=== PATIENT | female | born 1965 | race African-American/Black ===

== ENCOUNTER 2018-06-11 08:53 | Observation (INO) | payer OTHER ==
[2018-06-11] MEDS ORDERED: NA CHLORIDE 0.9% 1,000 ML ONE (09:14)
[2018-06-11 09:40] LABS: Absolute Lymphocytes (CBC) 2.2 K/uL (0.7-4.9); Absolute Monocytes 0.8 K/uL (0.1-1.3); Absolute Neutrophil 2.8 K/uL (1.8-8.0); Basophils % 0.7 % (0-1.3); Eosinophils % 5.2 % (0-4.4); Hematocrit 38.8 % (36.0-45.0); Lymphocytes % 35.8 % (15.3-44.8); MCH 33.1 pg (27.0-35.0); Monocytes % 12.8 % (3.3-12.3); RBC Red Blood Cell Count 3.96 M/uL (3.86-4.86)
[2018-06-11 09:58] LABS: Protime INR 1.07
[2018-06-11 10:02] LABS: ALT/SGPT 17 U/L (12-78); AST/SGOT 19 U/L (15-37); Albumin 3.3 g/dL (3.4-5.0); Alkaline Phosphatase 57 U/L (45-117); BUN Blood Urea Nitrogen 12 mg/dL (7-18); Bicarbonate 25 mmol/L (21-32); Bilirubin Direct 0.3 mg/dL (0-0.2); Bilirubin Total 3.6 mg/dL (0.2-1.0); Glucose Level 89 mg/dL (74-106); Lipase 78 U/L (73-393); Magnesium 2.2 mg/dL (1.8-2.4); NT PRO-BNP 67 pg/mL (<125); Potassium 3.8 mmol/L (3.5-5.1); Sodium Level 139 mmol/L (136-145); Troponin (Emerg Dept Use Only) < 0.02 ng/mL (0.0-0.045)
[2018-06-11] MEDS ORDERED: ASPIRIN 81 MG CHEWABLE TABLET ONE (10:20)
--- NOTE | 2018-06-11 10:31 | ER ---
Nurse's Notes [facility] Name: Nisreen Dwyer Age: 52 yrs Sex: Female : 1965 Arrival Date: 06/11/2018 Time: 08:56 Bed 8 Private MD: None, None Diagnosis: Chest pain, unspecified;Human immunodeficiency virus [HIV] disease;Urinary tract infection, site not specified Presentation: 06/11 09:02 Presenting complaint: Patient states: has had cough, chest tightness X 2 days, hx of iw asthma, denies chest pain, also coughing up yellow sputum, denies fever. Transition of care: patient was not received from another setting of care. Onset of symptoms was June 09, 2018. Risk Assessment: Do you want to hurt yourself or someone else? Patient reports no desire to harm self or others. Initial Sepsis Screen: Does the patient meet any 2 criteria? No. Patient's initial sepsis screen is negative. Does the patient have a suspected source of infection? No. Patient's initial sepsis screen is negative. Care prior to arrival: None. 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 - Social history:: Smoking status: Patient uses tobacco products, smokes one-half pack cigarettes per day. - Ebola Screening: : Patient negative for fever greater than or equal to 101.5 degrees Fahrenheit, and additional compatible Ebola Virus Disease symptoms Patient denies exposure to infectious person Patient denies travel to an Ebola-affected area in the 21 days before illness onset No symptoms or risks identified at this time. Screenin:37 Abuse screen: Denies threats or abuse. Denies injuries from another. Nutritional sg screening: No deficits noted. Tuberculosis screening: No symptoms or risk factors identified. Never had TB. Fall Risk None identified. Assessment: 09:37 General: Appears in no apparent distress. comfortable, slender, well groomed, well sg developed, well nourished, Behavior is calm, cooperative, appropriate for age. Pain: Denies pain. 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 Full function Speech is normal, Facial symmetry appears normal. Cardiovascular: Capillary refill is brisk in bilateral fingers Patient's skin is warm and dry. Chest pain quality is "tightness" is located in anterior chest wall. Respiratory: Reports shortness of breath on exertion Airway is patent Respiratory effort is even, unlabored, Respiratory pattern is regular, symmetrical, Breath sounds are clear Denies cough. GI: No signs and/or symptoms were reported involving the gastrointestinal system. : No signs and/or symptoms were reported regarding the genitourinary system. EENT: No signs and/or symptoms were reported regarding the EENT system. Derm: Skin is intact, is healthy with good turgor, Skin is dry, Skin is normal, Skin temperature is warm. Musculoskeletal: Circulation, motion, and sensation intact. Range of motion: intact in all extremities, Swelling absent. 09:55 Reassessment: pt supine in bed, HOB elevated 30 degrees, eyes closed, reps even and sg unlabored, pt awakens easily to verbal stimuli and then goes back to sleep, awaiting ultrasound, awaiting lab results at this time, pt denies pain. Pain medication held, notified. Vital Signs: 09:07 BP 127 / 97; Pulse 81; Resp 16; Temp 97.8; Pulse Ox 98% on R/A; Weight 56.7 kg; Height iw 5 ft. 5 in. (165.10 cm); Pain 0/10; 10:19 BP 110 / 84; Pulse 70; Resp 14; Pulse Ox 100% on R/A; Pain 0/10; sg 11:25 BP 127 / 88; Pulse 72; Resp 16; Pulse Ox 99% on R/A; Pain 0/10; sg 09:07 Body Mass Index 20.80 (56.70 kg, 165.10 cm) ED Course: 08:56 Patient arrived in ED. sb2 08:56 None, None is Private Physician. sb2 08:57 Alex Lopez MD is Attending Physician. nova 09:04 Triage completed. iw 09:07 Twin Ball RN is Primary Nurse. sg 09:07 Arm band placed on. iw 09:21 X-ray completed. Portable x-ray completed in exam room. Patient tolerated procedure la2 well. 09:22 XRAY Chest (1 view) In Process Unspecified. EDMS 09:30 Patient has correct armband on for positive identification. Placed in gown. Bed in low sg position. Call light in reach. Side rails up X2. department clerk on. Pulse ox on. NIBP on. Warm blanket given. x2 Head of bed elevated. 09:30 Initial lab(s) drawn, by me, sent to lab. Inserted saline lock: 20 gauge in right sg forearm, using aseptic technique. Blood collected. Patient maintains SpO2 saturation greater than 95% on room air. 10:30 Andrew Partida DO is Hospitalizing Provider. nova 10:54 Urine collected: clean catch specimen, clear. sg 12:28 No provider procedures requiring assistance completed. Patient admitted, IV remains in sg place. intact, No redness/swelling at site. Administered Medications: 09:36 Drug: NS 0.9% 1000 ml Route: IV; Rate: 125 ml/hr; Site: right forearm; sg 09:45 Drug: Aspirin Chewable Tablet 162 mg Route: PO; sg 11:25 Follow up: Response: No adverse reaction sg 11:10 Drug: Lovenox 1 mg/kg Route: Sub-Q; Site: right lower abdomen; sg 12:13 Follow up: Response: No adverse reaction sg 11:11 Drug: morphine 4 mg Route: IVP; Site: right forearm; sg 12:14 Follow up: Response: No adverse reaction sg 11:11 Drug: Zofran 4 mg Route: IVP; Site: right forearm; sg 12:13 Follow up: Response: No adverse reaction; Nausea is decreased sg 11:20 Drug: Rocephin 1 grams Route: IV; Rate: calculated rate; Site: right forearm; sg 12:00 Follow up: Response: No adverse reaction; IV Status: Completed infusion sg 11:22 Not Given (Other Intervention Used): Rocephin - (cefTRIAXone) 1 grams IVPB once over 30 sg mins; (mix in 50 mL NS) Outcome: 10:31 Decision to Hospitalize by Provider. nova 12:26 Admitted to [facility] accompanied by tech, family with patient, via wheelchair, room 429, sg with chart, Report called to Addy SHAFER 12:26 Condition: stable 12:26 Instructed on the need for admit, safety practices, Demonstrated understanding of instructions. 12:43 Patient left the ED. sg Signatures: Dispatcher [employer] EDTwin Pretty RN RN sg Anderson, Corey, MD MD cha Williams, Irene, RN RN Lizeth Chapman la2 Kelsie Tesfaye2 Corrections: (The following items were deleted from the chart) 09: 09:02 Acuity: VIVIANE 4 iw iw : 09:37 Inserted saline lock: 20 gauge in right forearm, using aseptic technique. Blood sg collected. :37 Initial lab(s) drawn, by me, sent to lab. [facility] :37 Patient maintains SpO2 saturation greater than 95% on room air. sg sg
--- NOTE | 2018-06-11 10:31 | EDPHYS ---
Physician Documentation [facility] Name: Nisreen Dwyer Age: 52 yrs Sex: Female : 1965 Arrival Date: 06/11/2018 Time: 08:56 Bed 8 Private MD: None, None ED Physician Alex Lopez HPI: 06/11 10:29 This 52 yrs old Black Female presents to ER via Wheelchair with complaints of Chest nova Tightness. 10:29 The patient or guardian reports chest pain that is located primarily in the substernal nova area, anterior chest wall. Onset: 3 day(s) ago. The pain does not radiate. Associated signs and symptoms: The patient has no apparent associated signs or symptoms. The chest pain is described as squeezing. Duration: The patient or guardian reports a single episode, that is still ongoing. Modifying factors: The symptoms are alleviated by nothing. the symptoms are aggravated by nothing. Severity of pain: At its worst the pain was moderate in the emergency department the pain has improved mildly. The patient has not experienced similar symptoms in the past. 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 - Social history:: Smoking status: Patient uses tobacco products, smokes one-half pack cigarettes per day. - Ebola Screening: : Patient negative for fever greater than or equal to 101.5 degrees Fahrenheit, and additional compatible Ebola Virus Disease symptoms Patient denies exposure to infectious person Patient denies travel to an Ebola-affected area in the 21 days before illness onset No symptoms or risks identified at this time. ROS: 10:29 Constitutional: Negative for fever, chills, and weight loss, Eyes: Negative for injury, nova pain, redness, and discharge, ENT: Negative for injury, pain, and discharge, Neck: Negative for injury, pain, and swelling, Respiratory: Negative for shortness of breath, cough, wheezing, and pleuritic chest pain, Abdomen/GI: Negative for abdominal pain, nausea, vomiting, diarrhea, and constipation, Back: Negative for injury and pain, : Negative for injury, bleeding, discharge, and swelling, MS/Extremity: Negative for injury and deformity, Skin: Negative for injury, rash, and discoloration, Neuro: Negative for headache, weakness, numbness, tingling, and seizure, Psych: Negative for depression, anxiety, suicide ideation, homicidal ideation, and hallucinations, Allergy/Immunology: Negative for hives, rash, and allergies, Endocrine: Negative for neck swelling, polydipsia, polyuria, polyphagia, and marked weight changes, Hematologic/Lymphatic: Negative for swollen nodes, abnormal bleeding, and unusual bruising. 10:29 Cardiovascular: Positive for chest pain. Exam: 10:29 Constitutional: This is a well developed, well nourished patient who is awake, alert, nova and in no acute distress. Head/Face: Normocephalic, atraumatic. Eyes: Pupils equal round and reactive to light, extra-ocular motions intact. Lids and lashes normal. Conjunctiva and sclera are non-icteric and not injected. Cornea within normal limits. Periorbital areas with no swelling, redness, or edema. ENT: Nares patent. No nasal discharge, no septal abnormalities noted. Tympanic membranes are normal and external auditory canals are clear. Oropharynx with no redness, swelling, or masses, exudates, or evidence of obstruction, uvula midline. Mucous membranes moist. Neck: Trachea midline, no thyromegaly or masses palpated, and no cervical lymphadenopathy. Supple, full range of motion without nuchal rigidity, or vertebral point tenderness. No Meningismus. Chest/axilla: Normal chest wall appearance and motion. Nontender with no deformity. No lesions are appreciated. Cardiovascular: Regular rate and rhythm with a normal S1 and S2. No gallops, murmurs, or rubs. Normal PMI, no JVD. No pulse deficits. Respiratory: Lungs have equal breath sounds bilaterally, clear to auscultation and percussion. No rales, rhonchi or wheezes noted. No increased work of breathing, no retractions or nasal flaring. Abdomen/GI: Soft, non-tender, with normal bowel sounds. No distension or tympany. No guarding or rebound. No evidence of tenderness throughout. Back: No spinal tenderness. No costovertebral tenderness. Full range of motion. Skin: Warm, dry with normal turgor. Normal color with no rashes, no lesions, and no evidence of cellulitis. MS/ Extremity: Pulses equal, no cyanosis. Neurovascular intact. Full, normal range of motion. Neuro: Awake and alert, GCS 15, oriented to person, place, time, and situation. Cranial nerves II-XII grossly intact. Motor strength 5/5 in all extremities. Sensory grossly intact. Cerebellar exam normal. Normal gait. Psych: Awake, alert, with orientation to person, place and time. Behavior, mood, and affect are within normal limits. Vital Signs: 09:07 BP 127 / 97; Pulse 81; Resp 16; Temp 97.8; Pulse Ox 98% on R/A; Weight 56.7 kg; Height iw 5 ft. 5 in. (165.10 cm); Pain 0/10; 10:19 BP 110 / 84; Pulse 70; Resp 14; Pulse Ox 100% on R/A; Pain 0/10; sg 11:25 BP 127 / 88; Pulse 72; Resp 16; Pulse Ox 99% on R/A; Pain 0/10; sg 09:07 Body Mass Index 20.80 (56.70 kg, 165.10 cm) iw MDM: 08:57 Patient medically screened. [facility] 10:30 Data reviewed: vital signs, nurses notes, lab test result(s), EKG, radiologic studies, nova plain films. 06/11 08:59 Order name: Basic Metabolic Panel; Complete Time: 10:23 [facility] 06/11 08:59 Order name: CBC with Diff; Complete Time: 10: [facility] 06/11 08:59 Order name: LFT's; Complete Time: 10:23 [facility] 06/11 08:59 Order name: Magnesium; Complete Time: 10:23 [facility] 06/11 08:59 Order name: NT PRO-BNP; Complete Time: 10:23 [facility] 06/11 08:59 Order name: PT-INR; Complete Time: 10:23 [facility] 06/11 08:59 Order name: Troponin (emerg Dept Use Only); Complete Time: 10:23 [facility] 06/11 08:59 Order name: Lipase; Complete Time: 10: [facility] 06/11 09:14 Order name: Blood Culture Adult (2) [facility] 06/11 09:28 Order name: UDS [facility] 06/11 09:37 Order name: D-Dimer; Complete Time: 10:23 [facility] 06/11 10:54 Order name: Urine Dipstick--Ancillary (enter results) sp 06/11 10:54 Order name: Urine Culture [facility] 06/11 08:59 Order name: XRAY Chest (1 view) [facility] 06/11 08:59 Order name: EKG; Complete Time: 09:00 [facility] 06/11 08:59 Order name: Cardiac monitoring; Complete Time: 09:37 [facility] 06/11 08:59 Order name: EKG - Nurse/Tech; Complete Time: 09:36 [facility] 06/11 08:59 Order name: IV Saline Lock; Complete Time: 09:36 [facility] 06/11 09:08 Order name: US Abdomen Limited [facility] 06/11 10:37 Order name: CONS Physician Consult [facility] 06/11 11:12 Order name: Urine Dipstick-Ancillary [facility] 06/11 11:20 Order name: US [facility] 06/11 08:59 Order name: Labs collected and sent; Complete Time: 09:36 [facility] 06/11 08:59 Order name: O2 Per Protocol; Complete Time: 09:36 [facility] 06/11 08:59 Order name: O2 Sat Monitoring; Complete Time: 09:36 [facility] 06/11 10:54 Order name: Urine Dipstick-Ancillary (obtain specimen); Complete Time: 10:55 [facility] Administered Medications: 09:36 Drug: NS 0.9% 1000 ml Route: IV; Rate: 125 ml/hr; Site: right forearm; sg 09:45 Drug: Aspirin Chewable Tablet 162 mg Route: PO; sg 11:25 Follow up: Response: No adverse reaction sg 11:10 Drug: Lovenox 1 mg/kg Route: Sub-Q; Site: right lower abdomen; sg 12:13 Follow up: Response: No adverse reaction sg 11:11 Drug: morphine 4 mg Route: IVP; Site: right forearm; sg 12:14 Follow up: Response: No adverse reaction sg 11:11 Drug: Zofran 4 mg Route: IVP; Site: right forearm; sg 12:13 Follow up: Response: No adverse reaction; Nausea is decreased sg 11:20 Drug: Rocephin 1 grams Route: IV; Rate: calculated rate; Site: right forearm; sg 12:00 Follow up: Response: No adverse reaction; IV Status: Completed infusion sg 11:22 Not Given (Other Intervention Used): Rocephin - (cefTRIAXone) 1 grams IVPB once over 30 sg mins; (mix in 50 mL NS) Disposition: 06/11/18 10:31 Hospitalization ordered by Andrew Partida for Observation. Preliminary diagnosis are Chest pain, unspecified, Human immunodeficiency virus [HIV] disease, Urinary tract infection, site not specified. - Bed requested for Telemetry/MedSurg (observation). - Status is Observation. sg - Condition is Fair. - Problem is new. - Symptoms have improved. UTI on Admission? Yes Signatures: Dispatcher [employer] EDMS Twin Ball RN RN sg Anderson, Corey, MD MD cha Pinkerton, Shawna sp Williams, Irene, RN RN iw Corrections: (The following items were deleted from the chart) 09:36 09:14 D-DIMER+[id number].LAB.BRZ ordered. [facility] 10:59 10:31 Hospitalization Ordered by Andrew Partida DO for Observation. Preliminary [facility] diagnosis is Chest pain, unspecified; Human immunodeficiency virus [HIV] disease. Bed requested for Telemetry/MedSurg (observation). Status is Observation. Condition is Fair. Problem is new. Symptoms have improved. UTI on Admission? No. [facility] 12:07 10:59 06/11/2018 10:31 Hospitalization Ordered by Andrew Partida DO for Observation. sp Preliminary diagnosis is Chest pain, unspecified; Human immunodeficiency virus [HIV] disease; Urinary tract infection, site not specified. Bed requested for Telemetry/MedSurg (observation). Status is Observation. Condition is Fair. Problem is new. Symptoms have improved. UTI on Admission? Yes. nova 12:43 12:07 06/11/2018 10:31 Hospitalization Ordered by Andrew Partida DO for Observation. sg Preliminary diagnosis is Chest pain, unspecified; Human immunodeficiency virus [HIV] disease; Urinary tract infection, site not specified. Bed requested for Telemetry/MedSurg (observation). Status is Observation. Condition is Fair. Problem is new. Symptoms have improved. UTI on Admission? Yes. sp
[2018-06-11 11:12] LABS: Urine Blood TRACE (NEG); Urine Glucose NEGATIVE (NEG); Urine Protein 1+ (NEG)
[2018-06-11] MEDS ORDERED: CEFTRIAXONE/SWI 1gm 1 GM/10 ML SYR ONE (11:14)
[2018-06-11] MEDS ORDERED: ONDANSETRON 4 MG/2 ML VIAL ONE (11:14)
[2018-06-11] MEDS ORDERED: MORPHINE 4 MG/ML SYR ONE (11:14)
[2018-06-11] MEDS ORDERED: ENOXAPARIN 60 MG/0.6 ML SQ ONE (11:15)
--- NOTE | 2018-06-11 11:19 | RAD REPORT ---
EXAM DESCRIPTION: US - Abdomen Exam Limited - 06/11/2018 10:53 am CLINICAL HISTORY: ABD PAIN COMPARISON: No comparisons FINDINGS: The gallbladder demonstrates no gallstones. No pericholecystic fluid or gallbladder wall t hickening. The common bile duct is normal measuring 4 mm. The liver demonstrates no findings of intrahepatic biliary dilatation. IMPRESSION: Unremarkable examination.
[2018-06-11 11:26] LABS: Barbiturates NEGATIVE (NEGATIVE); Benzodiazepines NEGATIVE (NEGATIVE); Cocaine POSITIVE (NEGATIVE); METHAMPHETAM NEGATIVE (NEGATIVE); Methadone NEGATIVE (NEGATIVE); Opiates NEGATIVE (NEGATIVE); Phencyclidine NEGATIVE (NEGATIVE); THC Cannibis POSITIVE (NEGATIVE)
--- NOTE | 2018-06-11 11:31 | RAD REPORT ---
EXAM DESCRIPTION: RAD - Chest Single View - 06/11/2018 9:21 am CLINICAL HISTORY: CHEST PAIN Chest pain. COMPARISON: Chest Pa And Lat (2 Views) dated 06/28/2017; CHEST SINGLE VIEW dated 12/16/2011 FINDINGS: Portable technique limits examination quality. The lungs are grossly clear. The heart is normal in size. No displaced fractures. IMPRESSION: No acute intrathoracic process suspected.
[2018-06-11] MEDS ORDERED: IPRATROPIUM BROM 0.5MG/2.5ML NEB PRN (11:39)
[2018-06-11] MEDS ORDERED: ONDANSETRON 4 MG/2 ML VIAL IV PRN (11:39)
[2018-06-11] MEDS ORDERED: TRAMADOL HCL 50 MG TAB PO PRN (11:39)
[2018-06-11] MEDS ORDERED: ALBUTEROL 2.5 MG/3 ML NEB SOL NEB PRN (11:39)
[2018-06-11] MEDS ORDERED: HYDRALAZINE HCL 20 MG/ML VIAL IV PRN (11:39)
[2018-06-11] MEDS ORDERED: ACETAMINOPHEN 500 MG TAB PO PRN (11:39)
--- NOTE | 2018-06-11 11:55 | P.HP ---
Certification for Inpatient Patient admitted to: Observation With expected LOS: <2 Midnights Patient will require the following post-hospital care: None Practitioner: I am a practitioner with admitting privileges, knowledge of patient current condition, hospital course, and medical plan of care. Services: Services provided to patient in accordance with Admission requirements found in Title 42 Section 412.3 of the Code of Federal Regulations Patient History Date of Service: 06/11/18 [facility] Reason for admission: Shortness of breath, chest pain History of Present Illness: 52-year-old -[place]ogol[place] female presented to emergency room with shortness of breath and chest pain. Patient has history of HIV, hypertension, asthma, cocaine and tobacco abuse. Patient presented with shortness of breath and chest pain over the past 3 days. Chest pain mainly to the left side. He does not radiate. Patient reports no palpitations. Patient denies nausea, vomiting, headaches or dizziness. In the ER patient evaluated. Blood pressure stable. O2 saturations around 88% while lying down. Patient with increased fatigue. Patient positive for cocaine and THC. White count 6.1, hemoglobin 13.6. Sodium 135, potassium 3.8. BUN of 12, creatinine 1.3 with a GFR 52. Glucose 89. Chest x-ray unremarkable. Abdominal ultrasound unremarkable. Patient admitted for observation. When I saw the patient ER, she did not appear in any respiratory distress. Poor eye contact noted. Patient with increased fatigue. Patient gets her HIV medication through [facility]. Patient reports taking medication for blood pressure. Uses albuterol as needed. Patient admits tobacco use. Patient denied using cocaine. Allergies No Known Allergies Allergy (Unverified 12/16/11 12:16) Home medications list reviewed: Yes - Past Medical/Surgical History Diabetic: No -: HIV -: Hypertension -: Asthma -: Tobacco abuse -: Cocaine abuse -: THC abuse Past Surgical History: Patient denies surgical history Psychosocial/ Personal History: Patient is single. She has 3 children. She does not work. - Family History Family History: Reviewed- Non-Contributory - Social History Smoking Status: Heavy Tobacco smoker (>10 cigarettes/day) Counseled patient to stop smoking for: less than 10 minutes Smoking therapy provided: Yes Patient receptive to therapy: Yes Alcohol use: No CD- Drugs: Yes Caffeine use: Yes Place of Residence: Home Review of Systems General: As per HPI Eyes: Unremarkable ENT: Unremarkable Respiratory: Cough, Shortness of Breath, Wheezing, As per HPI Cardiovascular: Chest Pain, As per HPI Gastrointestinal: Unremarkable Genitourinary: Unremarkable Musculoskeletal: Unremarkable Integumentary: Unremarkable Neurological: Unremarkable Lymphatics: Unremarkable Physical Examination - Physical Exam General: Alert, In no apparent distress, Oriented x3, Cooperative, Other (With increased fatigue.) HEENT: Atraumatic, Normocephalic, PERRLA, Other (Dry mucous membranes) Neck: Supple, No Thyromegaly Respiratory: Expiratory wheezes (Mild wheezing bilateral) Cardiovascular: Normal pulses, Regular rate/rhythm Gastrointestinal: Normal bowel sounds, Soft and benign, Non-distended, No tenderness, No masses, No rebound, No guarding Musculoskeletal: No contractures, No erythema, No tenderness, No warmth Integumentary: No tenderness/swelling, No erythema, No warmth, No cyanosis Neurological: Normal speech, Normal strength at 5/5 x4 extr, Normal tone, Normal affect - Studies Laboratory Data (last 24 hrs) 06/11/18 09:30: PT 12.6 H, INR 1.07 06/11/18 09:30: WBC 6.1, Hgb 13.1, Hct 38.8, Plt Count 236 06/11/18 09:30: Sodium 139, Potassium 3.8, BUN 12, Creatinine 1.30, Glucose 89, Magnesium 2.2, Total Bilirubin 3.6 H, AST 19, ALT 17, Alkaline Phosphatase 57, Lipase 78 Assessment and Plan - Plan Impression: Shortness of breath and chest pain likely asthma exacerbation HIV positive Cocaine abuse with positive drug screen THC use with positive drug screen Hypertension GERD Tobacco abuse Dehydration Plan: Shortness of breath and chest pain likely asthma exacerbation: Patient will be admitted for observation and treatment. Will start oral prednisone and asthma medication. Will monitor cardiac enzymes and telemetry. Doubt chest pain is cardiac related. Will check echocardiogram and monitor cardiac enzymes including telemetry. Will reassess tomorrow. Recheck chest x-ray. Will obtain pro calcitonin level. Anticipate discharge tomorrow if much improved. Will need to have older adult social work specialist provide education and contact information to local PCPs in the area to establish care. Compliance with follow up and medications will be addressed in detail. HIV positive: Will need to obtain HIV medication from home so that this can be restarted. Patient seen in [place] for her HIV. Cocaine abuse with positive drug screen: Patient did not admit to cocaine use. She was positive for cocaine. Will address cocaine cessation education and lifestyle modification. THC use with positive drug screen: Patient did not admit to marijuana use. She was positive for THC. Will address THC cessation education. Hypertension: Will need to obtain home medication. Will provide medication for blood pressure as needed. GERD: Will provide PPI. Tobacco abuse: Will address tobacco cessation education Dehydration: Will start IV fluids. Will monitor electrolytes and replace appropriately. Discharge Plan: Home Plan to discharge in: 24 Hours - Advance Directives Does patient have a Living Will: No Does patient have a Durable POA for Healthcare: No - Code Status/Comfort Care Code Status Assessed: Yes (Patient full code.) Time Spent Managing Pts Care (In Minutes): 55
[2018-06-11 12:57] VITALS: BMI 20.7
[2018-06-11] MEDS: NA CHLORIDE 0.9% 1,000 ML IV SCH ×2 (13:17→23:16)
[2018-06-11 15:43] LABS: Urine Appearance CLEAR; Urine Bilirubin NEGATIVE (NEG); Urine Blood 1+ (NEG); Urine Color YELLOW; Urine Glucose NEGATIVE (NEG); Urine Protein NEGATIVE (NEG); Urine Specific Gravity <=1.005 (1.005-1.030)
[2018-06-11 15:57] LABS: Urine Microscopic Reflex ORDER UMIC
[2018-06-11 16:07] LABS: Urine Bacteria <20 /HPF (<20)
[2018-06-11 16:11] LABS: Urine Culture Reflex Order NOT NEEDED
[2018-06-11 18:46] LABS: CKMB Creatine Kinase MB < 1.0 ng/mL (0.3-3.6); Creatine Phosphokinase 99 U/L (26-192); Troponin I < 0.02 ng/mL (0.0-0.045)
[2018-06-11 18:52] LABS: Thyroid Stimulating Hormone 0.86 uIU/mL (0.360-3.740)
[2018-06-11] MEDS: predniSONE 20 MG TAB PO SCH (21:09)
[2018-06-11] MEDS: guaiFENesin 100 MG/5 ML UCUP PO PRN (23:42)
[2018-06-12 02:03] VITALS: O2SAT 96
[2018-06-12 03:39] LABS: Absolute Lymphocytes (CBC) 0.9 K/uL (0.7-4.9); Absolute Monocytes 0.1 K/uL (0.1-1.3); Absolute Neutrophil 4.2 K/uL (1.8-8.0); Basophils % 0.8 % (0-1.3); Hematocrit 41.7 % (36.0-45.0); Lymphocytes % 16.2 % (15.3-44.8); MCH 33.3 pg (27.0-35.0); MCV 99.8 fL (80-100); MPV 9.1 fL (7.6-11.3); Monocytes % 2.6 % (3.3-12.3); RBC Red Blood Cell Count 4.17 M/uL (3.86-4.86)
[2018-06-12 04:18] LABS: CKMB Creatine Kinase MB < 1.0 ng/mL (0.3-3.6); Creatine Phosphokinase 108 U/L (26-192); Troponin I < 0.02 ng/mL (0.0-0.045)
[2018-06-12 04:40] LABS: Magnesium 2.3 mg/dL (1.8-2.4); Potassium 4.7 mmol/L (3.5-5.1)
[2018-06-12] MEDS ORDERED: PANTOPRAZOLE 40MG TABLET PO SCH (06:30)
--- NOTE | 2018-06-12 07:35 | RAD REPORT ---
EXAM DESCRIPTION: RAD - Chest Pa And Lat (2 Views) - 06/12/2018 6:57 am CLINICAL HISTORY: COPD, shortness of breath COMPARISON: June 11June 2017 TECHNIQUE: PA and lateral views of the chest were obtained. FINDINGS: The lungs are fibrotic as a baseline. No significant flattening of the hemidiaphragm. Prom inent lung parenchymal pattern has not changed. No new or enlarging pleural or parenchymal process. Heart size is normal and central vasculature is within normal limits. No pleural effusion or pneumot horax seen. No acute bony finding noted. No aortic abnormality. IMPRESSION: Stable chest from June 11
[2018-06-12] MEDS ORDERED: PNEUMOCOCCAL VACCINE 0.5 ML IMVAC ONE (08:00)
--- NOTE | 2018-06-12 08:11 | EKG ---
Test Date: 2018-06-11 Test Time: 09:34:36 Safety Sealer: MEASUREMENT RESULTS: Intervals: Rate: 72 IL: 168 QRSD: 130 QT: 444 QTc: 486 Trail: P: 82 IL: 168 QRS: -50 T: 66 INTERPRETIVE STATEMENTS: Normal sinus rhythm Possible Left atrial enlargement Left axis deviation Right bundle branch block Abnormal ECG Compared to ECG 12/16/2011 11:30:31 Left-axis deviation now present Right bundle-branch block now present T-wave abnormality no longer present Possible ischemia no longer present Electronically Signed On 06-12-18 08:10:27 CDT by Shon Saavedra
[2018-06-12] MEDS ORDERED: ENOXAPARIN 40 MG/0.4 ML SQ SCH (09:00)
[2018-06-12] MEDS ORDERED: NICOTINE 21 MG/PAT TD SCH (09:00)
[2018-06-12] MEDS ORDERED: EMTRICITABINE/TENOFOVIR 1 TAB PO SCH (09:00)
[2018-06-12] MEDS ORDERED: ASPIRIN EC 81 MG TAB PO SCH (09:00)
[2018-06-12] MEDS ORDERED: VALACYCLOVIR 500 MG TAB PO SCH (09:00)
[2018-06-12] MEDS ORDERED: ATAZANAVIR SULFATE 300 MG PO SCH (09:00)
[2018-06-12] MEDS ORDERED: RITONAVIR 100 MG PO SCH (09:00)
[2018-06-12] MEDS: predniSONE 20 MG TAB PO SCH (11:06)
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
[2018-06-12] MEDS: guaiFENesin 100 MG/5 ML UCUP PO PRN (11:11)
[2018-06-12 12:21] VITALS: BP 145/75; TEMP 97.4
--- NOTE | 2018-06-12 12:48 | ECHO ---
HEIGHT: 5 ft 5 in WEIGHT: 125 lb 0 oz DATE OF STUDY: 06/12/[address]: 2-DIMENSIONAL: YES M.MODE: YES DOPPLER: YES COLOR FLOW: YES TDS: NO PORTABLE: NO DEFINITY: NO BUBBLE STUDY: NO DIAGNOSIS: SHORTNESS OF BREATH CARDIAC HISTORY: CATHERIZATION: NO SURGERY: NO PROSTHETIC VALVE: NO PACEMAKER: NO MEASUREMENTS (cm) DIASTOLIC (NORMALS) SYSTOLIC (NORMALS) IVSd 0.9 (0.6-1.2) LA Diam 2.7 (1.9-4.0) LVEF 78% LVIDd 4.5 (3.5-5.7) LVIDs 2.4 (2.0-3.5) %FS 47% LVPWd 0.8 (0.6-1.2) Ao Diam 2.8 (2.0-3.7) 2 DIMENSIONAL ASSESSMENT: RIGHT ATRIUM: NORMAL LEFT ATRIUM: NORMAL RIGHT VENTRICLE: NORMAL LEFT VENTRICLE: NORMAL TRICUSPID VALVE: NORMAL MITRAL VALVE: NORMAL PULMONIC VALVE: NORMAL AORTIC VALVE: NORMAL PERICARDIAL EFFUSION: NONE AORTIC ROOT: NORMAL LEFT VENTRICULAR WALL MOTION: NORMAL. DOPPLER/COLOR FLOW: MILD TRICUSPID REGURGITATION. NORMAL RIGHT VENTRICULAR SYSTOLIC PRESSURE. COMMENTS: NORMAL 2D ECHOCARDIOGRAM. MILD TRICUSPID REGURGITATION. TECHNOLOGIST: LITA TABARES
== END 2018-06-12 13:55 | disposition home or self-care (01) ==
LOC: ER 08:53 → ERHOLD 10:35 → 4TH 12:29
PROVIDERS: ADMIT Family Medicine; ATTEND Family Medicine
DX: J45.901 Unspecified asthma with (acute) exacerbation (principal); F14.10 Cocaine abuse, uncomplicated; F12.90 Cannabis use, unspecified, uncomplicated; E86.0 Dehydration; K21.9 Gastro-esophageal reflux disease without esophagitis; N28.9 Disorder of kidney and ureter, unspecified; Z72.0 Tobacco use; Z21 Asymptomatic human immunodeficiency virus [HIV] infection status
CPT/HCPCS: 36415; 71045; 71046; 76705; 80048; 80061; 80076; 80307; 81003; 81015; 82550; 82553; 83690; 83735; 83880; 84145; 84439; 84443; 84484; 85025; 85379; 85610; 87040; 87086; 87088; 93005; 93306; 94640; 96365; 96372; 96375; 99285; G0378; J0696; J1650; J2405; J7030; J7512

== ENCOUNTER 2019-12-04 15:09 | Emergency (ER) | payer OTHER ==
--- NOTE | 2019-12-04 15:32 | RAD REPORT ---
EXAM DESCRIPTION: RAD - Chest Single View - 12/04/2019 3:25 pm CLINICAL HISTORY: CHEST PAIN Chest pain. COMPARISON: Chest Pa And Lat (2 Views) dated 06/12/2018; Chest Single View dated 06/11/2018; Chest Pa And Lat (2 Views) dated 06/28/2017; CHEST SINGLE VIEW dated 12/16/2011 FINDINGS: Portable technique limits examination quality. The lungs are grossly clear. The heart is normal in size. No displaced fractures. IMPRESSION: No acute intrathoracic process suspected.
[2019-12-04 15:42] LABS: Absolute Lymphocytes (CBC) 1.6 K/uL (0.7-4.9); Basophils % 1.1 % (0-1.3); Hematocrit 49.2 % (36.0-45.0); Lymphocytes % 35.4 % (15.3-44.8); MPV 9.4 fL (7.6-11.3); RBC Red Blood Cell Count 5.07 M/uL (3.86-4.86)
[2019-12-04 15:44] LABS: Protime INR 1.1
[2019-12-04] MEDS ORDERED: ASPIRIN 81 MG CHEWABLE TABLET ONE (15:45)
[2019-12-04 16:01] LABS: ALT/SGPT 39 U/L (12-78); AST/SGOT 32 U/L (15-37); Albumin 3.4 g/dL (3.4-5.0); Alkaline Phosphatase 44 U/L (45-117); BUN Blood Urea Nitrogen 13 mg/dL (7-18); Bicarbonate 24 mmol/L (21-32); Bilirubin Direct 0.2 mg/dL (0-0.2); Bilirubin Total 0.5 mg/dL (0.2-1.0); Glucose Level 106 mg/dL (74-106); Magnesium 2.1 mg/dL (1.8-2.4); NT PRO-BNP 44 pg/mL (<125); Potassium 3.8 mmol/L (3.5-5.1); Protein, Total 7.7 g/dL (6.4-8.2); Sodium Level 137 mmol/L (136-145); Troponin (Emerg Dept Use Only) < 0.02 ng/mL (0.0-0.045)
[2019-12-04 16:05] LABS: Barbiturates NEGATIVE (NEGATIVE); Benzodiazepines NEGATIVE (NEGATIVE); Cocaine POSITIVE (NEGATIVE); METHAMPHETAM NEGATIVE (NEGATIVE); Methadone NEGATIVE (NEGATIVE); Opiates NEGATIVE (NEGATIVE); Phencyclidine NEGATIVE (NEGATIVE); THC Cannibis POSITIVE (NEGATIVE)
[2019-12-04] MEDS ORDERED: ONDANSETRON 4 MG/2 ML VIAL ONE (16:26)
--- NOTE | 2019-12-04 17:14 | EDPHYS ---
Physician Documentation [facility] Name: Nisreen Dwyer Age: 54 yrs Sex: Female : 1965 Arrival Date: 12/04/2019 Time: 15:10 Bed 6 Private MD: ED Physician Alex Lopez HPI: 12/03 16:09 This 54 yrs old Black Female presents to ER via [employer] with complaints of [facility] Chest Pain > 30 y/o. 16:09 The patient or guardian reports chest pain that is located primarily in the anterior [facility] chest wall, bilaterally. Onset: 3 day(s) ago. The pain does not radiate. The pain does not radiate. Associated signs and symptoms: The patient has no apparent associated signs or symptoms. The chest pain is described as aching. Duration: The patient or guardian reports multiple episodes, with no pattern. Modifying factors: The symptoms are alleviated by nothing. the symptoms are aggravated by nothing. Severity of pain: At its worst the pain was mild in the emergency department the pain has resolved. The patient has experienced similar episodes in the past, several times. 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 - Social history:: Smoking status: Patient reports the use of cigarette tobacco products, smokes one-half pack cigarettes per day, Patient uses street drugs, cocaine. - Family history:: not pertinent. ROS: 16:09 Constitutional: Negative for fever, chills, and weight loss, Eyes: Negative for injury, nova pain, redness, and discharge, ENT: Negative for injury, pain, and discharge, Neck: Negative for injury, pain, and swelling, Respiratory: Negative for shortness of breath, cough, wheezing, and pleuritic chest pain, Abdomen/GI: Negative for abdominal pain, nausea, vomiting, diarrhea, and constipation, Back: Negative for injury and pain, : Negative for injury, bleeding, discharge, and swelling, MS/Extremity: Negative for injury and deformity, Skin: Negative for injury, rash, and discoloration, Neuro: Negative for headache, weakness, numbness, tingling, and seizure, Psych: Negative for depression, anxiety, suicide ideation, homicidal ideation, and hallucinations, Allergy/Immunology: Negative for hives, rash, and allergies, Endocrine: Negative for neck swelling, polydipsia, polyuria, polyphagia, and marked weight changes, Hematologic/Lymphatic: Negative for swollen nodes, abnormal bleeding, and unusual bruising. 16:09 Cardiovascular: Positive for chest pain, of the chest. Exam: 16:09 Constitutional: This is a well developed, well nourished patient who is awake, alert, nova and in no acute distress. Head/Face: Normocephalic, atraumatic. Eyes: Pupils equal round and reactive to light, extra-ocular motions intact. Lids and lashes normal. Conjunctiva and sclera are non-icteric and not injected. Cornea within normal limits. Periorbital areas with no swelling, redness, or edema. ENT: Nares patent. No nasal discharge, no septal abnormalities noted. Tympanic membranes are normal and external auditory canals are clear. Oropharynx with no redness, swelling, or masses, exudates, or evidence of obstruction, uvula midline. Mucous membranes moist. Neck: Trachea midline, no thyromegaly or masses palpated, and no cervical lymphadenopathy. Supple, full range of motion without nuchal rigidity, or vertebral point tenderness. No Meningismus. Chest/axilla: Normal chest wall appearance and motion. Nontender with no deformity. No lesions are appreciated. Cardiovascular: Regular rate and rhythm with a normal S1 and S2. No gallops, murmurs, or rubs. Normal PMI, no JVD. No pulse deficits. Respiratory: Lungs have equal breath sounds bilaterally, clear to auscultation and percussion. No rales, rhonchi or wheezes noted. No increased work of breathing, no retractions or nasal flaring. Abdomen/GI: Soft, non-tender, with normal bowel sounds. No distension or tympany. No guarding or rebound. No evidence of tenderness throughout. Back: No spinal tenderness. No costovertebral tenderness. Full range of motion. Skin: Warm, dry with normal turgor. Normal color with no rashes, no lesions, and no evidence of cellulitis. MS/ Extremity: Pulses equal, no cyanosis. Neurovascular intact. Full, normal range of motion. Neuro: Awake and alert, GCS 15, oriented to person, place, time, and situation. Cranial nerves II-XII grossly intact. Motor strength 5/5 in all extremities. Sensory grossly intact. Cerebellar exam normal. Normal gait. Psych: Awake, alert, with orientation to person, place and time. Behavior, mood, and affect are within normal limits. 16:09 Musculoskeletal/extremity: DVT Exam: No signs of deep vein thrombosis. no pain, no swelling, no tenderness, negative Homans' sign noted on exam, no appreciated bluish discoloration, no erythema, no increased warmth. Vital Signs: 15:11 BP 146 / 97; Pulse 85; Resp 13 S; Temp 97.6(O); Pulse Ox 99% on R/A; Pain 7/10; jl7 17:00 BP 113 / 87; Pulse 84; Resp 16 S; Pulse Ox 100% on R/A; [facility] er MDM: 15:27 Patient medically screened. [facility] 16:09 Data reviewed: vital signs, nurses notes, lab test result(s), EKG, radiologic studies, [facility] plain films. 12/03 15:11 Order name: Basic Metabolic Panel; Complete Time: 16:18 [facility] er 12/03 15:11 Order name: CBC with Diff; Complete Time: 16:18 [facility] er 12/03 15:11 Order name: LFT's; Complete Time: 16:18 [facility] 12/03 15:11 Order name: Magnesium; Complete Time: 16:18 [facility] 12/03 15:11 Order name: NT PRO-BNP; Complete Time: 16:18 [facility] 12/03 15:11 Order name: PT-INR; Complete Time: 16:18 [facility] 12/03 15:11 Order name: Troponin (emerg Dept Use Only); Complete Time: 16:18 [facility] 12/03 15:11 Order name: XRAY Chest (1 view); Complete Time: 16:18 [facility] 12/03 15:11 Order name: EKG; Complete Time: 15:13 [facility] 12/03 15:11 Order name: Cardiac monitoring; Complete Time: 15:11 [facility] 12/03 15:28 Order name: UDS; Complete Time: 16:18 [facility] 12/03 15:29 Order name: Lipase; Complete Time: 16:18 [facility] 12/03 16:19 Order name: Troponin (emerg Dept Use Only): 5PM; Complete Time: 17:11 [facility] 12/03 15:11 Order name: EKG - Nurse/Tech; Complete Time: 15:22 [facility] 12/03 15:11 Order name: IV Saline Lock; Complete Time: 15:31 [facility] 12/03 15:11 Order name: Labs collected and sent; Complete Time: 15:31 [facility] 12/03 15:11 Order name: O2 Per Protocol; Complete Time: 15:11 [facility] 12/03 15:11 Order name: O2 Sat Monitoring; Complete Time: 15:11 [facility] Administered Medications: 15:41 Drug: Aspirin Chewable Tablet 162 mg Route: PO; [facility] 15:47 Follow up: Response: No adverse reaction [facility] Disposition: 12/04/19 17:14 Discharged to Home. Impression: Cocaine abuse, Chest pain, unspecified, Human immunodeficiency virus [HIV] disease, Abuse of non-psychoactive substances. - Condition is Stable. - Discharge Instructions: Nonspecific Chest Pain, Chest Wall Pain, Substance Use Disorder, Chest Wall Pain, [id number], Nonspecific Chest Pain, [id number], Aspirin and Your Heart. - Medication Reconciliation Form, Thank You Letter, Antibiotic Education, Prescription Opioid Use form. - Follow up: Private Physician; When: 2 - 3 days; Reason: Recheck today's complaints, Continuance of care, Re-evaluation by your physician. Follow up: Raleigh Cornelius MD; When: 2 - 3 days; Reason: Recheck today's complaints, Re-evaluation by your physician. - Problem is new. - Symptoms have improved. Signatures: Dispatcher [employer] [facility] Alex Lopez MD MD cha Leal, Jahala RN RN [id number] Corrections: (The following items were deleted from the chart) 17:14 17:14 12/04/2019 17:14 Discharged to Home. Impression: Cocaine abuse; Chest pain, nova unspecified; Human immunodeficiency virus [HIV] disease; Abuse of non-psychoactive substances. Condition is Stable. Discharge Instructions: Nonspecific Chest Pain, Chest Wall Pain, Substance Use Disorder, Chest Wall Pain, [id number], Nonspecific Chest Pain, [id number], Aspirin and Your Heart. Forms are Medication Reconciliation Form, Thank You Letter, Antibiotic Education, Prescription Opioid Use. Follow up: Private Physician; When: 2 - 3 days; Reason: Recheck today's complaints, Continuance of care, Re-evaluation by your physician. Problem is new. Symptoms have improved. [facility] 18:01 17:14 12/04/2019 17:14 Discharged to Home. Impression: Cocaine abuse; Chest pain, jl7 unspecified; Human immunodeficiency virus [HIV] disease; Abuse of non-psychoactive substances. Condition is Stable. Discharge Instructions: Nonspecific Chest Pain, Chest Wall Pain, Substance Use Disorder, Chest Wall Pain, [id number], Nonspecific Chest Pain, [id number], Aspirin and Your Heart. Forms are Medication Reconciliation Form, Thank You Letter, Antibiotic Education, Prescription Opioid Use. Follow up: Private Physician; When: 2 - 3 days; Reason: Recheck today's complaints, Continuance of care, Re-evaluation by your physician. Follow up: Raleigh Cornelius; When: 2 - 3 days; Reason: Recheck today's complaints, Re-evaluation by your physician. Problem is new. Symptoms have improved. [facility]
--- NOTE | 2019-12-04 17:14 | ER ---
Nurse's Notes [facility] Name: Nisreen Dwyer Age: 54 yrs Sex: Female : 1965 Arrival Date: 12/04/2019 Time: 15:10 Bed 6 Private MD: Diagnosis: Cocaine abuse;Chest pain, unspecified;Human immunodeficiency virus [HIV] disease;Abuse of non-psychoactive substances Presentation: 12/03 15:11 Chief complaint: Patient states: Chest pain x 2 days, laid in bed for 2 days then went jl out and "Did something stupid, but I didn't do any drugs today." Reports left sided chest pain that radiates to left leg. Coronavirus screen: The patient has NOT traveled to a country currently being monitored by the [facility] within the last 14 days. Proceed with normal triage procedures. The patient has NOT had contact with any known and/or suspected case of coronavirus. Proceed with normal triage procedures. Ebola Screen: No symptoms or risks identified at this time. Initial Sepsis Screen: Does the patient meet any 2 criteria? No. Patient's initial sepsis screen is negative. Does the patient have a suspected source of infection? No. Patient's initial sepsis screen is negative. Risk Assessment: Do you want to hurt yourself or someone else? Patient reports no desire to harm self or others. Onset of symptoms was December 02, 2019. 15:11 Method Of Arrival: Law Enforcement: [place] [id number] 15:11 Acuity: VIVIANE 3 jl7 Triage Assessment: 15:14 General: Appears in no apparent distress. uncomfortable, Behavior is calm, cooperative. jl7 Pain: Complains of pain in anterior aspect of left upper chest Pain radiates to left leg Pain currently is 8 out of 10 on a pain scale. Quality of pain is described as sharp, Pain began 2-3 days ago. Is continuous. Neuro: Level of Consciousness is awake, alert, obeys commands, Oriented to person, place, time, situation. Cardiovascular: Patient's skin is warm and dry. Respiratory: Airway is patent Respiratory effort is even, unlabored, Respiratory pattern is regular, symmetrical. Derm: Skin is pink, warm \\T\\ dry. 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 - Social history:: Smoking status: Patient reports the use of cigarette tobacco products, smokes one-half pack cigarettes per day, Patient uses street drugs, cocaine. - Family history:: not pertinent. Screenin:16 Abuse screen: Denies threats or abuse. Denies injuries from another. Nutritional jl7 screening: No deficits noted. Tuberculosis screening: No symptoms or risk factors identified. Fall Risk IV access (20 points). Total Hill Fall Scale indicates No Risk (0-24 pts). Assessment: 15:16 General: See triage assessment. jl7 16:30 Reassessment: Patient appears in no apparent distress at this time. No changes from jl7 previously documented assessment. Patient and/or family updated on plan of care and expected duration. Pain level reassessed. Patient is alert, oriented x 3, equal unlabored respirations, skin warm/dry/pink. Vital Signs: 15:11 BP 146 / 97; Pulse 85; Resp 13 S; Temp 97.6(O); Pulse Ox 99% on R/A; Pain 7/10; jl7 17:00 BP 113 / 87; Pulse 84; Resp 16 S; Pulse Ox 100% on R/A; jl7 ED Course: 15:10 Patient arrived in ED. jl7 15:13 Triage completed. jl7 15:14 Arm band placed on right wrist. jl7 15:16 Patient has correct armband on for positive identification. quality assurance monitor chassis on. Pulse jl7 ox on. NIBP on. Warm blanket given. 15:16 Patient maintains SpO2 saturation greater than 95% on room air. jl7 15:17 Pinky Smith, SONI is Primary Nurse. jl7 15:24 XRAY Chest (1 view) In Process Unspecified. EDMS 15:27 Alex Lopez MD is Attending Physician. nova 15:30 Initial lab(s) drawn, by me, sent to lab. Inserted saline lock: 22 gauge in right lt1 forearm, using aseptic technique. 17:14 Raleigh Cornelius MD is Referral Physician. nova 18:01 No provider procedures requiring assistance completed. IV discontinued, intact, jl7 bleeding controlled, No redness/swelling at site. Pressure dressing applied. Administered Medications: 15:41 Drug: Aspirin Chewable Tablet 162 mg Route: PO; [facility] 15:47 Follow up: Response: No adverse reaction Outcome: 17:14 Discharge ordered by MD. bhatt 18:01 Discharged to Law Enforcement [facility] 18:01 Condition: stable 18:01 Discharge instructions given to patient, police, Instructed on discharge instructions, follow up and referral plans. Demonstrated understanding of instructions, follow-up care. 18:01 Patient left the ED. Signatures: Dispatcher [employer] EDAlex Cueva MD MD cha Leal, Jahala, RN RN [email or web address] Petrona Johnson lt1
[2019-12-04 18:08] VITALS: TEMP 97.6
[2019-12-04 18:09] VITALS: BP 113/87; O2SAT 100
--- NOTE | 2019-12-04 22:59 | EKG ---
Test Date: 2019-12-04 Test Time: 15:18:51 Machine Room Engineer: MORELIA MEASUREMENT RESULTS: Intervals: Rate: 79 ID: [id number] QRSD: 120 QT: 390 QTc: 447 [place]: P: 67 ID: [id number] QRS: -71 T: 56 INTERPRETIVE STATEMENTS: Normal sinus rhythm Right bundle branch block Left axis Abnormal ECG Compared to ECG 06/11/2018 09:34:36 no significant change from previous ECG Electronically Signed On 12-04-19 22:59:27 CDT by Shon Saavedra
== END 2019-12-04 18:01 | disposition home or self-care (01) ==
LOC: ER 15:09
DX: R07.9 Chest pain, unspecified (principal); F14.10 Cocaine abuse, uncomplicated; F55.8 Abuse of other non-psychoactive substances; B20 Human immunodeficiency virus [HIV] disease; F17.210 Nicotine dependence, cigarettes, uncomplicated
CPT/HCPCS: 93005; 85025; 80048; 36415; 83735; 85610; 80076; 80307 ×8; 84484 ×2; 83690; 83880; 71045; 99285; J2405

== ENCOUNTER 2020-05-12 01:28 | Emergency (ER) | payer OTHER ==
--- OUTSIDE RECORDS SUMMARY | 2020-05-12 01:30 | XMS REPORT | Clinical Summary ---
:1965 Author Organization [facility] Address [address] [place] [address] Care Team Providers Name Role Phone Asked, Pcp Primary Care Provider Unavailable Allergies No Known Allergies Medications No known medications Active Problems Not on file Immunizations Name Administration Dates Next Due FLUCELVAX QUAD PF 07/07/2018 (Deferred: Other - pt dischar ged; per pt, will get her flu shot on Jul 28) Social History Tobacco Use Types Packs/Day Years Used Date Current Some Day Smoker Smokeless Tobacco: Former User Alcohol Use Drinks/Week oz/Week Comments Yes occasional Sex Assigned at Date Recorded Not on file Job Start Date Occupation Industry Not on file Not on file Not on file Travel History Travel Start Travel End No recent travel history available. 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
[2020-05-12 02:11] LABS: Absolute Lymphocytes (CBC) 2.9 K/uL (0.7-4.9); Basophils % 0.9 % (0-1.3); Hematocrit 46.7 % (36.0-45.0); Lymphocytes % 37.9 % (15.3-44.8); MPV 9.2 fL (7.6-11.3); RBC Red Blood Cell Count 4.91 M/uL (3.86-4.86)
[2020-05-12 02:22] LABS: Potassium 4.1 mmol/L (3.5-5.1)
--- NOTE | 2020-05-12 03:11 | ER ---
Nurse's Notes [facility] Name: Nisreen Dwyer Age: 54 yrs Sex: Female : 1965 Arrival Date: 05/12/2020 Time: 01:30 Bed 14 Private MD: Diagnosis: Acute upper respiratory infection, unspecified Presentation: 05/12 01:31 Chief complaint: EMS states: BIBA FROM HOME WITH SOB AND CONGESTION. WAS SEEN 4 DAYS mt2 AGO GIVEN MEDS BUT NOT EFFCTIVE. ON SCENE GIVEN A DUONEB. PT STATED SOME RELIEF. STATES COUGH BUT DENIES FEVER OR CHILLS. Coronavirus screen: Client denies travel out of the [place] in the last 14 days. cough unrelated to allergies, shortness of breath. Ebola Screen: No symptoms or risks identified at this time. Initial Sepsis Screen: Does the patient meet any 2 criteria? No. Patient's initial sepsis screen is negative. Does the patient have a suspected source of infection? No. Patient's initial sepsis screen is negative. Risk Assessment: Do you want to hurt yourself or someone else? Patient reports no desire to harm self or others. Onset of symptoms was May 09, 2020. 01:31 Method Of Arrival: EMS: [facility] mt2 01:31 Acuity: VIVIANE 3 mt2 Triage Assessment: 01:30 General: Appears in no apparent distress. comfortable, Behavior is calm, cooperative, rr5 appropriate for age. Respiratory: Onset: The symptoms/episode began/occurred gradually, the patient has mild shortness of breath. 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 - Social history:: Smoking status: Patient reports the use of cigarette tobacco products, smokes one-half pack cigarettes per day, Patient uses street drugs, marijuana, Patient/guardian denies using alcohol. - Family history:: not pertinent. - Hospitalizations: : No recent hospitalization is reported. Screenin:34 Abuse screen: Denies threats or abuse. Nutritional screening: No deficits noted. mt2 Tuberculosis screening: No symptoms or risk factors identified. Fall Risk None identified. Assessment: 01:30 General: Appears in no apparent distress. comfortable, Behavior is calm, cooperative, rr5 agitated. 01:30 Pain: Denies pain. Neuro: Level of Consciousness is awake, alert, obeys commands, rr5 Oriented to person, place, time, situation. Cardiovascular: Capillary refill < 3 seconds Patient's skin is warm and dry. Rhythm is regular. Respiratory: Reports cough that is congestion Airway is patent Respiratory effort is even, unlabored, Respiratory pattern is regular, symmetrical, GI: No signs and/or symptoms were reported involving the gastrointestinal system. : No signs and/or symptoms were reported regarding the genitourinary system. EENT: No signs and/or symptoms were reported regarding the EENT system. Derm: Skin is intact, is healthy with good turgor, Skin temperature is warm. Musculoskeletal: Circulation, motion, and sensation intact. Capillary refill < 3 seconds. 02:35 Reassessment: pt resting quietly awaiting diagnostic results. bb 03:10 Reassessment: Patient appears in no apparent distress at this time. Patient is alert, rr5 oriented x 3, equal unlabored respirations, skin warm/dry/pink. review done by ED provider with order made and carried out may go home after the medications. 03:34 Reassessment: Patient appears in no apparent distress at this time. Patient is alert, rr5 oriented x 3, equal unlabored respirations, skin warm/dry/pink. discharge instruction given and explained without complaints made Patient states symptoms have improved. Vital Signs: 01:31 BP 143 / 98; Pulse 91; Resp 19; Temp 98.1; Pulse Ox 100% on R/A; Weight 58.97 kg; mt2 Height 5 ft. 5 in. (165.10 cm); Pain 0/10; 02:32 BP 156 / 106; Pulse 77; Resp 21 S; Pulse Ox 100% on R/A; bb 03:23 BP 142 / 75; Pulse 70; Resp 19; Pulse Ox 99% ; rr5 01:31 Body Mass Index 21.63 (58.97 kg, 165.10 cm) mt2 ED Course: 01:30 Patient arrived in ED. mt2 01:30 Bart Sheikh MD is Attending Physician. rn 01:33 Gurinder Anaya, SONI is Primary Nurse. rr5 01:34 Triage completed. mt2 01:35 Arm band placed on. mt2 01:35 Patient has correct armband on for positive identification. Placed in gown. Bed in low rr5 position. Call light in reach. electronic funds transfer coordinator on. Pulse ox on. NIBP on. 01:48 XRAY Chest (1 view) In Process Unspecified. EDMS 01:50 Flu and/or RSV swab sent to lab. Strep swab sent to lab. covid. rr5 01:59 Inserted saline lock: 20 gauge in right antecubital area, using aseptic technique. rr5 Blood collected. 03:24 No provider procedures requiring assistance completed. IV discontinued, intact, rr5 bleeding controlled, No redness/swelling at site. Pressure dressing applied. Administered Medications: 03:22 Drug: Zithromax 500 mg Route: PO; rr5 03:34 Follow up: Response: No adverse reaction rr5 03:22 Drug: predniSONE 60 mg Route: PO; rr5 03:34 Follow up: Response: No adverse reaction rr5 03:22 Drug: Albuterol 2.5 mg Route: Inhalation; rr5 03:34 Follow up: Response: No adverse reaction rr5 Outcome: 03:11 Discharge ordered by MD. rn 03:34 Discharged to home ambulatory. rr5 03:34 Condition: stable 03:34 Discharge instructions given to patient, Instructed on discharge instructions, follow up and referral plans. medication usage, Demonstrated understanding of instructions, follow-up care, medications, Prescriptions given X 3. 03:35 Patient left the ED. rr5 Addendum: 05/14/2020 14:44 Addendum: COVID-19 Result: Negative result given to RN to notify pt. Notified pt of a a5 negative COVID 19 swab results. Pt advised that even with a negative test result they should remain in isolation until symptom free for 3 days without medication. Pt also advised to return to the ED for worsening symptoms. Signatures: Dispatcher [employer] Constanza Mays RN RN bb Bart Sheikh MD MD rn Calderon, Audri, RN RN aa5 Gurinder Anaya RN RN rr5 Annalise Neff RN RN mt2 Corrections: (The following items were deleted from the chart) 05/12 02:38 01:30 Respiratory: Reports cough that is congestion Airway is patent Respiratory effort rr5 is even, unlabored, Respiratory pattern is regular, symmetrical, rr5
--- NOTE | 2020-05-12 03:11 | EDPHYS ---
Physician Documentation [facility] Name: Nisreen Dwyer Age: 54 yrs Sex: Female : 1965 Arrival Date: 05/12/2020 Time: 01:30 Bed 14 Private MD: ED Physician Bart Sheikh HPI: 05/12 02:01 This 54 yrs old Black Female presents to ER via EMS with complaints of Shortness Of rn Breath. 02:01 The patient has shortness of breath at rest, with light activity. Onset: The rn symptoms/episode began/occurred 2 day(s) ago. Duration: The symptoms are intermittent. The patient's shortness of breath is aggravated by nothing, is alleviated by nothing. Severity of symptoms: At their worst the symptoms were mild in the emergency department the symptoms are unchanged. The patient has experienced similar episodes in the past. Reports 2 days of URI symptoms, consists of cough/congestion with green sputum, compliant with HIV medication, reports low viral load and good CD4 count but cannot give me exact numbers. No known covid exposures. Reports doesn't feel really sick, called 911 because "car broke down". Still active smoker. No hemoptysis or chest pain.. 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 - Social history:: Smoking status: Patient reports the use of cigarette tobacco products, smokes one-half pack cigarettes per day, Patient uses street drugs, marijuana, Patient/guardian denies using alcohol. - Family history:: not pertinent. - Hospitalizations: : No recent hospitalization is reported. ROS: 02:01 Constitutional: + low grade fever, no chills/rigors Eyes: Negative for injury, pain, rn redness, and discharge, Neck: Negative for injury, pain, and swelling, Cardiovascular: Negative for chest pain, palpitations, and edema, Respiratory: Negative for pleuritic chest pain, Abdomen/GI: Negative for abdominal pain, nausea, vomiting, diarrhea, and constipation, MS/Extremity: Negative for injury and deformity, Skin: Negative for injury, rash, and discoloration, Neuro: Negative for headache, weakness, numbness, tingling, and seizure. Exam: 02:01 Constitutional: This is a well developed, well nourished patient who is awake, alert, rn and in no acute distress. Head/Face: Normocephalic, atraumatic. ENT: No stridor Cardiovascular: Regular rate and rhythm. No pulse deficits. Respiratory: Speaking full sentences. No increased work of breathing, no retractions or nasal flaring. Skin: Warm, dry MS/ Extremity: Pulses equal, no cyanosis. Neurovascular intact. Full, normal range of motion. Equal circumference. Neuro: Awake and alert, GCS 15, ambulatory Vital Signs: 01:31 BP 143 / 98; Pulse 91; Resp 19; Temp 98.1; Pulse Ox 100% on R/A; Weight 58.97 kg; mt2 Height 5 ft. 5 in. (165.10 cm); Pain 0/10; 02:32 BP 156 / 106; Pulse 77; Resp 21 S; Pulse Ox 100% on R/A; bb 03:23 BP 142 / 75; Pulse 70; Resp 19; Pulse Ox 99% ; rr5 01:31 Body Mass Index 21.63 (58.97 kg, 165.10 cm) mt2 MDM: 01:30 Patient medically screened. rn 03:03 Differential diagnosis: Bronchitis pneumonia, Pneumothorax. Data reviewed: vital signs, rn nurses notes, lab test result(s), radiologic studies, plain films, and as a result, I will discharge patient. Counseling: I had a detailed discussion with the patient and/or guardian regarding: the historical points, exam findings, and any diagnostic results supporting the discharge/admit diagnosis, lab results, radiology results, the need for outpatient follow up, to return to the emergency department if symptoms worsen or persist or if there are any questions or concerns that arise at home. 03:05 Response to treatment: the patient's symptoms have mildly improved after treatment, and rn as a result, I will discharge patient. ED course: No need for admission, cxr clear, no oxygen requirement, will dc home with abx/steroids/inhaler, given return precautions. . 05/12 01:32 Order name: CBC with Diff rn 05/12 01:32 Order name: Basic Metabolic Panel; Complete Time: 02:29 rn 05/12 01:32 Order name: Procalcitonin; Complete Time: 03:03 rn 05/12 01:32 Order name: Flu; Complete Time: 03:03 rn 05/12 01:32 Order name: Strep; Complete Time: 03:03 rn 05/12 01:32 Order name: COVID-19 rn 05/12 01:32 Order name: IV Start; Complete Time: 01:59 rn 05/12 01:32 Order name: XRAY Chest (1 view) rn 05/12 02:33 Order name: Manual Differential EDMS 05/12 02:35 Order name: Throat Culture EDMS Administered Medications: 03:22 Drug: Zithromax 500 mg Route: PO; rr5 03:34 Follow up: Response: No adverse reaction rr5 03:22 Drug: predniSONE 60 mg Route: PO; rr5 03:34 Follow up: Response: No adverse reaction rr5 03:22 Drug: Albuterol 2.5 mg Route: Inhalation; rr5 03:34 Follow up: Response: No adverse reaction rr5 Disposition: 05/12/20 03:11 Discharged to Home. Impression: Acute upper respiratory infection, unspecified. - Condition is Stable. - Discharge Instructions: Upper Respiratory Infection, Adult. - Prescriptions for Zithromax Z- Clark 250 mg Oral Tablet - take 1 tablet by ORAL route as directed for 5 days Day 1 - take two (2) tablets one time. Day 2, 3, 4 , 5 take one (1) tablet once daily.; 6 tablet. Prednisone 20 mg Oral Tablet - take 3 tablet by ORAL route once daily for 5 days; 15 tablet. Albuterol Sulfate 90 mcg/actuation - inhale 1-2 puff by INHALATION route every 4-6 hours; 1 Inhaler. - Medication Reconciliation Form, Thank You Letter, Antibiotic Education, Prescription Opioid Use form. - Follow up: Private Physician; When: As needed; Reason: Recheck today's complaints, Re-evaluation by your physician. - Problem is new. - Symptoms have improved. Signatures: Dispatcher [employer] EDMS Bart Sheikh MD MD rn Roque, Raymond, RN RN rr5 Corrections: (The following items were deleted from the chart) 03:35 03:11 05/12/2020 03:11 Discharged to Home. Impression: Acute upper respiratory rr5 infection, unspecified. Condition is Stable. Discharge Instructions: Upper Respiratory Infection, Adult. Prescriptions for Zithromax Z-Clark 250 mg Oral Tablet - take 1 tablet by ORAL route as directed for 5 days Day 1 - take two (2) tablets one time. Day 2, 3, 4 , 5 take one (1) tablet once daily.; 6 tablet. and Forms are Medication Reconciliation Form, Thank You Letter, Antibiotic Education, Prescription Opioid Use. Follow up: Private Physician; When: As needed; Reason: Recheck today's complaints, Re-evaluation by your physician. Problem is new. Symptoms have improved. rn
[2020-05-12] MEDS ORDERED: AZITHROMYCIN 250 MG TAB ONE (03:26)
[2020-05-12] MEDS ORDERED: ALBUTEROL 2.5 MG/3 ML NEB SOL ONE (03:27)
[2020-05-12] MEDS ORDERED: predniSONE 20 MG TAB ONE (03:27)
[2020-05-12 03:54] LABS: Blood Morphology Comment NOT SEEN (NOT SEEN); Platelet Estimate ADEQ
--- NOTE | 2020-05-12 08:49 | RAD REPORT ---
EXAM DESCRIPTION: RAD - Chest Single View - 05/12/2020 1:48 am CLINICAL HISTORY: COUGH Chest pain. COMPARISON: Chest Single View dated 12/04/2019; Chest Pa And Lat (2 Views) dated 06/12/2018; Chest Sin gle View dated 06/11/2018; Chest Pa And Lat (2 Views) dated 06/28/2017 FINDINGS: Portable technique limits examination quality. The lungs are emphysematous but grossly clear. The heart is normal in size. No displaced fractures. IMPRESSION: No acute intrathoracic process suspected.
[2020-05-16 23:04] VITALS: TEMP 98.1
[2020-05-16 23:07] VITALS: BP 142/75; O2SAT 99
== END 2020-05-12 03:35 | disposition home or self-care (01) ==
LOC: ER 01:28
DX: J06.9 Acute upper respiratory infection, unspecified (principal); Z20.828 Contact with and (suspected) exposure to other viral communicable diseases; J45.909 Unspecified asthma, uncomplicated; I10 Essential (primary) hypertension; F17.210 Nicotine dependence, cigarettes, uncomplicated; Z21 Asymptomatic human immunodeficiency virus [HIV] infection status
CPT/HCPCS: 93005 ×2; 87070; 85025; 80048; 36415; 87081; 84145; 87804 ×2; 71045; 99285; U0002; J7512

== ENCOUNTER 2021-03-25 16:16 | Emergency (ER) | payer OTHER ==
--- OUTSIDE RECORDS SUMMARY | 2021-03-25 16:20 | XMS REPORT | Continuity of Care Document ---
:1965 Author Organization [facility] t Address [address] [place] [address] Care Team Providers Name Role Phone Asked, Pcp Primary Care Physician Unavailable ROSA, Kelly Attending Clinician Unavailable Ely SHAFER, Thi Attending Clinician Payers Payer Name Policy Type Policy Number Effective Date Expiration Date Poonam matamoros [facility] [id number] 2016 PLAN SSI 00:00:00 SANDY HOOK [id number] 2016 Formerly [facility] 00:00:00 [employer] PLAN [id number] [phone] [address] Problems Condition Condition Condition Status Onset Resolution Last Treating Co mments Source Name Details Category Date Date Treatment Clinician Date Dyslipidem Dyslipidem Disease Active 2011-09 H arris ia ia 09-25 Health 00:00: 00 HSV HSV Disease Active Overview: Quentin (herpes (herpes 5-10 [facility] simplex simplex 00:00: g of this virus) virus) 00 note anogenital anogenital might be infection infection different from the original. 11/05/2016 - Pt reports 2 year history of calcitran t herpetic ulcers. HSV acyclovir swab collected . Given Lidocaine jelly. Pt advised that we may need to biopsy these lesions at future date. HIV HIV Disease Active Davy infection, infection, 5-10 He alth asymptomat asymptomat 00:00: ic ic 00 Cervical Cervical Disease Active Overview: [facility] dysplasia dysplasia 5-10 [facility] 00:00: g of this 00 note might be different from the original. 06/2009: Pap negative: Pap LGSIL Colpo Bx: HPV changes2011: Pap LGSIL02/05 13: Pap negative1 : Pap LGSIL05/02 Colposcop y, LOWELL 1 PAIN 3 (perianal IN 3). Anal Pap done, refer to AIN study.05/21 015: Low grade anal intraepit helial lesion10/20 - will defer colposcop y today given painful herpetic lesions (will begin working this up first). 03/04/2017 : vaginal & jodie-anal biopsies obtained. 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 Pt intoleran t to speculum exam. Colpo/ECC deferred until next visit. 04/22/2017 Colpo/ECC ? 09/2017: Active Herpes infection : for EUA, vaginal Bx and laser ablation of perianal lesion after her VL and CD4 count .Will defer sx if high viremia. D/W GYNONC Dr Cross. PCP PCP Disease [facility] 2007-092020-06-03 2020-06-03 Davy (pneumocys (pneumocys d -24 00:00:00 13:30:13 Health tis tis 00:00: carinii carinii 00 pneumonia) pneumonia) Allergies, Adverse Reactions, Alerts This patient has no known allergies or adverse reactions. Family History Family Member Diagnosis Comments Start Date Stop Date Source Natural brother Heart [facility] alth Maternal grandmother Diabetes [facility] Maternal grandmother Heart [facility] Maternal grandmother Hypertension [facility] Natural mother Arthritis [facility] lt Natural mother Heart [facility] Natural mother Hypertension [facility] ealth Other Sickle Cell [facility] Social History Social Habit Start Date Stop Date Quantity Comments Source Sex Assigned At [facility] alth Cigarettes smoked 2019-02-21 2019-02-21 [facility] current (pack per 00:00:00 00:00:00 day) - Reported Cigarette 2019-02-21 2019-02-21 [facility] pack-years 00:00:00 00:00:00 Alcohol intake 2019-02-21 2019-02-21 Current [facility] [place] lth 00:00:00 00:00:00 non-drinker of alcohol (finding) History [facility] Food 2018-09-05 2018-09-05 1 [facility] Worry 00:00:00 00:00:00 History [facility] Food 2018-09-05 2018-09-05 1 [facility] Scarcity 00:00:00 00:00:00 Tobacco use and 2018-07-07 2018-07-07 Former user C[facility]ai exposure 00:00:00 00:00:00 History of tobacco 2012-07-24 Current smoker [facility] use 00:00:00 Alcohol Comment 2008-08-26 2008-08-26 None since Quentin [facility] alth 00:00:00 00:00:00 07/13/2008. Smoking Status Start Date Stop Date Source Former smoker 2019-02-21 00:00:00 2019-02-21 00:00:00 Quentin Vega ealtradha Current some day smoker 2018-07-07 00:00:00 [facility] Bahai Medications Ordered Filled Start Stop Current Ordering Indication Dosage Frequency Signature Comments Components Source Medication Medication Date Date Medication? Clinician (SIG) Name Name valACYclovi Yes HSV (herpes 1000mg Q.5D TAKE 1 Saavedra r (VALTREX) 6-28 simplex TABLET BY Health 1 g tablet 00:00: virus) MOUTH 2 00 anogenital TIMES infection DAILY. BIKTARVY Yes HIV TAKE 1 Saavedra 50-200-25 5-20 infection, TABLET BY Health mg tablet 00:00: asymptomati MOUTH ONCE 00 c DAILY valACYclovi 2020- No HSV (herpes 1000mg Q.5D TAKE 1 [facility] r (VALTREX) 5-20 06-28 simplex TABLET BY Health 1 g tablet 00:00: 00:00 virus) MOUTH 2 00 :00 anogenital TIMES infection DAILY. valACYclovi 2020- No HSV (herpes 1000mg Q.5D TAKE 1 [facility] r (VALTREX) 3-25 05-20 simplex TABLET BY Health 1 g tablet 00:00: 00:00 virus) MOUTH 2 00 :00 anogenital TIMES infection DAILY. budesonide- Yes HIV INHALE 2 [facility] formoteroL 3-18 infection, PUFFS BY Health (SYMBICORT) 00:00: asymptomati MOUTH 2 80-4.5 00 c TIMES mcg/actuati DAILY.. on inhaler valACYclovi 2020- No HSV (herpes 1000mg Q.5D TAKE 1 Sa[facility]ra r (VALTREX) 3-18 03-25 simplex TABLET BY [facility] 1 g tablet 00:00: 00:00 virus) MOUTH 2 00 :00 anogenital TIMES infection DAILY. valACYclovi 2020- No HSV (herpes 1000mg Q.5D TAKE 1 Sa[facility]ra r (VALTREX) 2-18 03-18 simplex TABLET BY [facility] 1 g tablet 00:00: 00:00 virus) MOUTH 2 00 :00 anogenital TIMES infection DAILY. bictegravir 2020- No HIV 1{tbl} QD Take 1 H arris -emtricitab 9-15 05-20 infection, tablet by [facility] ineCYPHERofov 00:00: 00:00 asymptomati mouth ir 00 :00 c daily. alafenamide (BIKTARVY) 50-200-25 mg tablet albuterol Yes Extrinsic 2{puff} Inhale 2 Saavedra 90 8-04 asthma with Puffs by [facility] th mcg/actuati 00:00: exacerbatio mouth 4 on inhaler 00 n, mild times intermitten daily as t needed for Wheezing. budesonide- 2020- No HIV INHALE 2 H arris formoteroL 8 03-18 infection, PUFFS BY Health (SYMBICORT) 00:00: 00:00 asymptomati MOUTH 2 80-4.5 00 :00 c TIMES mcg/actuati DAILY.. on inhaler valACYclovi 2020- No HSV (herpes 1000mg Q.5D Take 1 [facility] r (VALTREX) 8- 02-18 simplex tablet by [facility] 1 g tablet 00:00: 00:00 virus) mouth 2 00 :00 anogenital times infection daily. bictegravir 2019- No HIV 1{tbl} QD Take 1 H arris -emtricitab 8- 09-15 infection, tablet by [facility] ineCYPHERofov 00:00: 00:00 asymptomati mouth ir 00 :00 c daily. alafenamide (BIKTARVY) 50-200-25 mg tablet bictegravir 0 2020- No HIV 1{tbl} QD Take 1 H arris -emtricitab 04-22 infection, tablet by [facility] 00:00: 00:00 asymptomati mouth ir 00 :00 c daily. alafenamide (BIKTARVY) 50-200-25 mg tablet bictegravir 2020- No HIV 1{tbl} QD Take 1 H arris -emtricitab 04-22 infection, tablet by [facility] 00:00: 00:00 asymptomati mouth ir 00 :00 c daily. alafenamide (BIKTARVY) 50-200-25 mg tablet bictegravir 2020- No HIV 1{tbl} QD Take 1 H arris -emtricitab 04-22 infection, tablet by [facility] 00:00: 00:00 asymptomati mouth ir 00 :00 c daily. alafenamide (BIKTARVY) 50-200-25 mg tablet bictegravir 2020- No HIV 1{tbl} QD Take 1 H arris -emtricitab 04-22 infection, tablet by [facility] 00:00: 00:00 asymptomati mouth ir 00 :00 c daily. alafenamide (BIKTARVY) 50-200-25 mg tablet bictegravir 2020- No HIV 1{tbl} QD Take 1 H arris -emtricitab 04-22 infection, tablet by [facility] 00:00: 00:00 asymptomati mouth ir 00 :00 c daily. alafenamide (BIKTARVY) 50-200-25 mg tablet BIKTARVY 2018-09 2020- No HIV TAKE 1 Saavedra 50-200-25 004-22 infection, TABLET BY [facility] mg tablet 00:00: 00:00 asymptomati MOUTH ONCE 00 :00 c DAILY valACYclovi 2018-09 2020- No HSV (herpes TAKE 1 Saavedra r (VALTREX) 018 08 simplex TABLET BY [facility] 1 g tablet 00:00: 00:00 virus) MOUTH 00 :00 anogenital TWICE A infection DAY. SYMBICORT 2018-09- No HIV INHALE 2 Burak ris 80-4.5 04-22 infection, PUFFS BY He alth mcg/actuati 00:00: 00:00 asymptomati MOUTH 2 on inhaler 00 :00 c TIMES DAILY. REGENECARE 2019- HIV APPLY TO [facility] ZARCO 2 % Gel 12-29 infection, AFFECTED Health 00:00: 00:00 asymptomati AREA 00 :00 c NEEDED FOR PAIN. influenza 2017-09 2020- No .5mL Davy vaccine 11-06 Health (4 10:45: 13:56 YR+) 00 :05 (FLUCELVAX) 60 mcg (15 mcg x 4)/0.5 mL injection 0.5 mL albuterol 2016-09- No Extrinsic 2{puff} Inhale 2 Davy (VENTOLIN 11-16 asthma with Puffs by [facility] HFA,PROVENT 00:00: 00:00 exacerbatio mouth 4 [place] 00 :00 n, mild times HFA,PROAIR intermitten daily as HFA) 90 t needed for mcg/actuati Wheezing. on inhaler [facility] 2019- No Human 1{packa Take 1 H arris 0.09-2.25 10-11 immunodefic ge} Package by [facility] gram-kcal/m 00:00: 00:00 iency virus mouth 3 L oral 00 :00 (HIV) times liquid disease daily. Docosanol 2019- HSV (herpes Apply to Davy (ABREVA) 10 204-22 simplex affected Health % Crea 00:00: 00:00 virus) area Apply 00 :00 anogenital 5 times a infection day over lesion. Immunizations Ordered Immunization Filled Immunization Date Status Commen ts Source Name Name PCV 13 (Pnuemococcal 2018-09-05 Completed [facility] Conjugated 13 Valent) 00:00:00 Influenza, 2018-09-05 Completed [facility] Vaccine<FLUCELVAX>(Mu 00:00:00 lti-Dose) Hepatitis B Vaccine 2015-11-27 Completed [facility] 00:00:00 Influenza Vaccine 2015-06-26 Completed [facility] 00:00:00 Pneumococcal 2013-10-11 Completed [facility] 13-valent conj 0.5 mL 00:00:00 injection Influenza Vaccine 2013-10-11 Completed [facility] 00:00:00 PPD 2012-07-26 Completed [facility] 00:00:00 Influenza Vaccine 2012-07-26 Completed [facility] 00:00:00 Hepatitis B Vaccine 2012-03-23 Completed [facility] 00:00:00 PPV 23 Pneumococcal 2012-02-24 Completed [facility] Polysaccaride 00:00:00 Hepatitis B Vaccine 2012-02-24 Completed [facility] 00:00:00 Tdap Tetanus, 2011-08-[address] [facility] th diphtheria, acellular 00:00:00 pertussis Vaccine Influenza Vaccine 2011-08-23 Completed [facility] 00:00:00 Influenza Vaccine 2010-07-31 Completed [facility] 00:00:00 Influenza Vaccine 2009-07-17 Completed [facility] 00:00:00 Vital Signs Vital Name Observation Time Observation Value Comments Source Systolic blood pressure 2020-04-22 13:38:00 121 mm[Hg] [facility] Diastolic blood pressure 2020-04-22 13:38:00 77 mm[Hg] [facility] Heart rate 2020-04-22 13:38:00 74 /min [facility] Body temperature 2020-04-22 13:38:00 36.78 Shanti [facility] Respiratory rate 2020-04-22 13:38:00 18 /min [facility] Body height 2020-04-22 13:38:00 165.1 cm [facility] Body weight 2020-04-22 13:38:00 57.516 kg [facility] BMI 2020-04-22 13:38:00 21.10 kg/m2 [facility] Oxygen saturation in 2020-04-22 13:38:00 99 /min [facility] Arterial blood by Pulse oximetry Procedures Procedure Date / Time Performed Performing Clinician Sourc e HEMOCCULT KIT FOR SPECIMEN 2020-06-03 13:49:13 IndiraYamilka Cooper se [facility] COLLECTION AT HOME CHLAM/GC DNA AMPLI 2020-05-27 15:27:00 Luly Munoz [facility] HEPATITIS B SURFACE AG 2020-05-27 14:22:00 Luly Munoz [facility] HEPATITIS C VIRUS AB 2020-05-27 14:22:00 Luly Munoz [facility] CBC 2020-05-27 14:22:00 Luly Munoz [facility] CBC/DIFF 2020-05-27 14:22:00 Luly Munoz [facility] BASIC METABOLIC PANEL 2020-05-27 14:22:00 Luly Munoz [facility] LIVER PROFILE 2020-05-27 14:22:00 Luly Munoz [facility] CD4/CD8 RATIO GRP 2020-05-27 14:22:00 Luly Munoz is [facility] HIV RNA VIRAL LOAD 2020-05-27 14:22:00 Luly Munoz [facility] CBC/DIFF 2020-04-08 11:02:00 Luly Munoz [facility] CD4/CD8 RATIO GRP 2020-04-08 11:02:00 Luly Munoz is Health COMPREHENSIVE METABOLIC 2020-04-08 11:02:00 Luly Munoz [facility] PANEL HIV RNA VIRAL LOAD 2020-04-08 11:02:00 Luly Munoz [facility] SYPHILIS MONITOR FOR 2020-04-08 11:02:00 Luly Munoz [facility] TREATMENT URINALYSIS 2020-04-08 11:02:00 Luly Munoz [facility] CBC 2020-04-08 11:02:00 Luly Munoz [facility] URINALYSIS 2020-04-08 11:02:00 Luly Munoz [facility] BILIRUBIN, DIRECT 2020-04-08 11:02:00 Luly Munoz is Health DIFFERENTIAL, MANUAL (NO 2020-04-08 11:02:00 Luly Munoz [facility] MORPHOLOGY)-[facility] Plan of Care Planned Activity Planned Date Details Comments Source Future Scheduled Test 2021-06-19 00:00:00 IMM Influenza [facility] Seasonal Jun to November (>/= 19 yrs) [code = IMM Influenza Seasonal Jun to November (>/= 19 yrs)] Future Scheduled Test 2016 00:00:00 Screening for [facility] malignant neoplasm of colon (procedure) [code = 501898346] Future Scheduled Test 2013-10-28 00:00:00 Breast Cancer Scrn [facility] (Yearly) [code = Breast Cancer Scrn (Yearly)] Future Scheduled Test 1996 00:00:00 Screening for [facility] malignant neoplasm of cervix (procedure) [code = 205397822] Future Scheduled Test 1996 00:00:00 Screening for [facility] malignant neoplasm of cervix (procedure) [code = 975838919] Future Scheduled Test 1978 00:00:00 COVID-19 Vaccine (1) [facility] [code = COVID-19 Vaccine (1)] Encounters Start End Encounter Admission Attending Care Care Encounter Source Date/Time Date/Time Type Type Clinicians Facility Department ID 2021-03-19 2021-03-19 Outpatient [facility] [id number] Davy 00:00:00 00:00:00 LULY SALAS 2021-02-05 2021-02-05 Outpatient [facility] [id number] Davy 00:00:00 00:00:00 LULY SALAS 2021-01-22 2021-01-22 Outpatient [facility] [id number] Davy 00:00:00 00:00:00 LULY SALAS 2020-11-11 2020-11-11 Outpatient [facility] [id number] Davy 00:00:00 00:00:00 LULY SALAS Results This patient has no known results.
[2021-03-25] MEDS ORDERED: METHYLPREDNISOLONE 125 MG INJ ONE (18:28)
[2021-03-25] MEDS ORDERED: KETOROLAC 30 MG/ML INJ ONE (18:28)
--- NOTE | 2021-03-25 18:51 | RAD REPORT ---
EXAM DESCRIPTION: Radha Single View03/25/2021 6:25 pm CLINICAL HISTORY: Back pain COMPARISON: 2019 FINDINGS: An area of subsegmental atelectasis left base. Otherwise, lungs appear clear. Heart is normal size
--- NOTE | 2021-03-25 19:13 | ER ---
Nurse's Notes [facility] Name: Nisreen Dwyer Age: 55 yrs Sex: Female : 1965 Arrival Date: 03/25/2021 Time: 16:19 Bed 4 Private MD: Diagnosis: Muscle spasm of back Presentation: 03/25 16:27 Chief complaint: Patient states: Reports a knot and pain to L shoulder area since last ll1 night. L arm feels tingly also. Coronavirus screen: Client denies travel out of the [place] in the last 14 days. At this time, the client does not indicate any symptoms associated with coronavirus-19. Ebola Screen: Patient denies travel to an Ebola-affected area in the 21 days before illness onset. Initial Sepsis Screen: Does the patient meet any 2 criteria? No. Patient's initial sepsis screen is negative. Does the patient have a suspected source of infection? No. Patient's initial sepsis screen is negative. Risk Assessment: Do you want to hurt yourself or someone else? Patient reports no desire to harm self or others. Onset of symptoms was March 24, 2021. 16:27 Method Of Arrival: Ambulatory ll1 16:27 Acuity: VIVIANE 4 ll1 Historical: - Allergies: 16:28 NKA; ll1 - PMHx: 16:28 Asthma; HIV positive; Hypertension; ll1 - PSHx: 16:28 None; ll1 - Immunization history:: Flu vaccine is not up to date. - Social history:: Smoking status: Patient reports the use of cigarette tobacco products, smokes one-half pack cigarettes per day. Screenin:05 Abuse screen: Denies threats or abuse. Nutritional screening: No deficits noted. aa5 Tuberculosis screening: No symptoms or risk factors identified. Fall Risk None identified. Assessment: 18:05 General: Appears uncomfortable, Behavior is calm, cooperative. Pain: Complains of pain aa5 in left scapular area Pain currently is 10 out of 10 on a pain scale. Quality of pain is described as sharp, Is continuous, Aggravated by touch. Neuro: Level of Consciousness is awake, alert, obeys commands, Oriented to person, place, time, situation. Cardiovascular: Heart tones S1 S2 present Rhythm is regular. Respiratory: Airway is patent Respiratory effort is even, unlabored, Respiratory pattern is regular, symmetrical, Breath sounds are clear bilaterally. Denies cough, shortness of breath. GI: Patient currently denies diarrhea, nausea, vomiting. : No signs and/or symptoms were reported regarding the genitourinary system. EENT: No signs and/or symptoms were reported regarding the EENT system. Derm: Skin is dry, Skin is normal, Skin temperature is warm No swollen area/bumps noticed or palpated to left scapular area. Musculoskeletal: Range of motion: intact in all extremities. 19:18 Reassessment: Patient appears in no apparent distress at this time. Patient and/or ad5 family updated on plan of care and expected duration. Pain level reassessed. Patient is alert, oriented x 3, equal unlabored respirations, skin warm/dry/pink. Patient states feeling better. Vital Signs: 16:27 BP 171 / 107; Pulse 78; Resp 17; Temp 97.2; Pulse Ox 95% ; Weight 64.86 kg; Height 5 ll1 ft. 5 in. (165.10 cm); Pain 10/10; 18:05 BP 191 / 106; Pulse 77; Resp 16 S; Pulse Ox 99% on R/A; aa5 18:26 BP 171 / 94; Pulse 66; Resp 18 S; Pulse Ox 96% on R/A; aa5 16:27 Body Mass Index 23.80 (64.86 kg, 165.10 cm) ll1 ED Course: 16:19 Patient arrived in ED. mr 16:28 Triage completed. ll1 16:29 Arm band placed on. ll1 17:35 Bernardo Hammer MD is Attending Physician. kdr 17:37 Monisha Doyle, SONI is Primary Nurse. aa5 18:05 Patient has correct armband on for positive identification. Bed in low position. Call aa5 light in reach. Side rails up X 1. Pulse ox on. NIBP on. 18:15 Inserted saline lock: 22 gauge in right forearm, using aseptic technique. aa5 18:20 EKG done, by ED staff, reviewed by Bernardo Hammer MD. aa5 18:25 CXR XRAY In Process Unspecified. EDMS 19:00 Report given to SONI Sethi and SONI Tyson. aa5 19:11 Primary Nurse role handed off by Monisha Doyle, SONI eb 19:18 Jah Centeno is Primary Nurse. ad5 19:22 No provider procedures requiring assistance completed. IV discontinued, intact, ad5 bleeding controlled, No redness/swelling at site. Pressure dressing applied. Administered Medications: 18:15 Drug: Ketorolac 15 mg Route: IVP; Site: right forearm; aa5 18:25 Follow up: Response: No adverse reaction aa5 18:15 Drug: SOLU-Medrol (methylPrednisoLONE) 125 mg Route: IVP; Site: right forearm; aa5 18:25 Follow up: Response: No adverse reaction aa5 18:29 Drug: Robaxin (methocarbamol) 1 grams Route: IVPB; Infused Over: 1 hrs; Site: right aa5 forearm; 19:18 Follow up: Response: No adverse reaction; IV Status: Completed infusion ad5 Outcome: 19:12 Discharge ordered by . kdr 19:22 Discharged to home ambulatory, with family. ad5 19:22 Condition: stable 19:22 Discharge instructions given to patient, Instructed on discharge instructions, follow up and referral plans. medication usage, Demonstrated understanding of instructions, follow-up care, medications, Prescriptions given X 3. 19:23 Patient left the ED. ad5 Signatures: Dispatcher [employer] EDMS Bernardo Hammer MD MD kdr Rivera, Mary mr Monisha Doyle RN RN aa5 Kaylynn Stringer Lynsay, RN RN ll1 Jah Centeno ad5 Corrections: (The following items were deleted from the chart) 19:12 17:30 BP 191 / 106; Pulse 77bpm; Resp 16bpm; Spontaneous; Pulse Ox 99% RA; aa5 aa5
--- NOTE | 2021-03-25 19:13 | EDPHYS ---
Physician Documentation [facility] Name: Nisreen Dwyer Age: 55 yrs Sex: Female : 1965 Arrival Date: 03/25/2021 Time: 16:19 Bed 4 Private MD: ED Physician Bernardo Hammer HPI: 03/26 11:39 This 55 yrs old Black Female presents to ER via Ambulatory with complaints of Shoulder kdr Pain, Arm Pain, Numbness Of Arm. 11:39 The patient or guardian complains of decreased range of motion, pain. kdr 11:40 The patient presents with pain that is acute, with no known mechanism of injury. The kdr symptoms are located in the left scapular area. Onset: The symptoms/episode began/occurred gradually, 4 day(s) ago. The pain does not radiate. Associated signs and symptoms: The patient has no apparent associated signs or symptoms. The problem was sustained from unknown cause. Severity of symptoms: At their worst the symptoms were moderate, severe, just prior to arrival, in the emergency department the symptoms are unchanged. The patient has not experienced similar symptoms in the past. The patient has not recently seen a physician. Historical: - Allergies: 03/25 16:28 NKA; ll1 - PMHx: 16:28 Asthma; HIV positive; Hypertension; ll1 - PSHx: 16:28 None; ll1 - Immunization history:: Flu vaccine is not up to date. - Social history:: Smoking status: Patient reports the use of cigarette tobacco products, smokes one-half pack cigarettes per day. ROS: 03/26 11:40 Constitutional: Negative for fever, chills, and weight loss, Eyes: Negative for injury, kdr pain, redness, and discharge, ENT: Negative for injury, pain, and discharge, Neck: Negative for injury, pain, and swelling, Cardiovascular: Negative for chest pain, palpitations, and edema, Respiratory: Negative for shortness of breath, cough, wheezing, and pleuritic chest pain, Abdomen/GI: Negative for abdominal pain, nausea, vomiting, diarrhea, and constipation, : Negative for injury, bleeding, discharge, and swelling, MS/Extremity: Negative for injury and deformity, Skin: Negative for injury, rash, and discoloration, Neuro: Negative for headache, weakness, numbness, tingling, and seizure activity. Psych: Negative for depression, anxiety, suicide ideation, homicidal ideation, and hallucinations, Allergy/Immunology: Negative for hives, rash, and allergies, Endocrine: Negative for neck swelling, polydipsia, polyuria, polyphagia, and marked weight changes, Hematologic/Lymphatic: Negative for swollen nodes, abnormal bleeding, and unusual bruising. Back: Positive for pain at rest, pain with movement, of the left scapular area. Exam: 11:40 Constitutional: This is a well developed, well nourished patient who is awake, alert, kdr and in no acute distress. Head/Face: Normocephalic, atraumatic. Eyes: Pupils equal round and reactive to light, extra-ocular motions intact. Lids and lashes normal. Conjunctiva and sclera are non-icteric and not injected. Cornea within normal limits. Periorbital areas with no swelling, redness, or edema. Neck: Trachea midline, no thyromegaly or masses palpated, and no cervical lymphadenopathy. Supple, full range of motion without nuchal rigidity, or vertebral point tenderness. No Meningismus. Chest/axilla: Normal chest wall appearance and motion. Nontender with no deformity. No lesions are appreciated. Cardiovascular: Regular rate and rhythm with a normal S1 and S2. No gallops, murmurs, or rubs. Normal PMI, no JVD. No pulse deficits. Respiratory: Lungs have equal breath sounds bilaterally, clear to auscultation and percussion. No rales, rhonchi or wheezes noted. No increased work of breathing, no retractions or nasal flaring. Abdomen/GI: Soft, non-tender, with normal bowel sounds. No distension or tympany. No guarding or rebound. No evidence of tenderness throughout. Skin: Warm, dry with normal turgor. Normal color with no rashes, no lesions, and no evidence of cellulitis. MS/ Extremity: Pulses equal, no cyanosis. Neurovascular intact. Full, normal range of motion. Neuro: Awake and alert, GCS 15, oriented to person, place, time, and situation. Cranial nerves II-XII grossly intact. Motor strength 5/5 in all extremities. Sensory grossly intact. Cerebellar exam normal. Normal gait. Psych: Awake, alert, with orientation to person, place and time. Behavior, mood, and affect are within normal limits. 11:40 Back: pain, that is mild, of the left scapular area. Vital Signs: 03/25 16:27 BP 171 / 107; Pulse 78; Resp 17; Temp 97.2; Pulse Ox 95% ; Weight 64.86 kg; Height 5 ll1 ft. 5 in. (165.10 cm); Pain 10/10; 18:05 BP 191 / 106; Pulse 77; Resp 16 S; Pulse Ox 99% on R/A; aa5 18:26 BP 171 / 94; Pulse 66; Resp 18 S; Pulse Ox 96% on R/A; aa5 16:27 Body Mass Index 23.80 (64.86 kg, 165.10 cm) ll1 MDM: 19:12 Patient medically screened. kdr 03/26 11:40 Data reviewed: vital signs, nurses notes, lab test result(s), EKG, radiologic studies. kdr Counseling: I had a detailed discussion with the patient and/or guardian regarding: the historical points, exam findings, and any diagnostic results supporting the discharge/admit diagnosis, lab results, radiology results, the need for outpatient follow up. Response to treatment: the patient's symptoms have markedly improved after treatment. Special discussion: I discussed with the patient/guardian in detail that at this point there is no indication for admission to the hospital. It is understood, however, that if the symptoms persist or worsen the patient needs to return immediately for re-evaluation. 03/25 18:03 Order name: CXR XRAY; Complete Time: 19:10 kdr 03/25 18:03 Order name: EKG - Nurse/Tech; Complete Time: 18:21 kdr Administered Medications: 03/25 18:15 Drug: Ketorolac 15 mg Route: IVP; Site: right forearm; aa5 18:25 Follow up: Response: No adverse reaction aa5 18:15 Drug: SOLU-Medrol (methylPrednisoLONE) 125 mg Route: IVP; Site: right forearm; aa5 18:25 Follow up: Response: No adverse reaction aa5 18:29 Drug: Robaxin (methocarbamol) 1 grams Route: IVPB; Infused Over: 1 hrs; Site: right aa5 forearm; 19:18 Follow up: Response: No adverse reaction; IV Status: Completed infusion ad5 Disposition Summary: 03/25/21 19:12 Discharge Ordered Location: Home kdr Problem: new kdr Symptoms: have improved kdr Condition: Stable kdr Diagnosis - Muscle spasm of back kdr Followup: kdr - With: Private Physician - When: 2 - 3 days - Reason: If symptoms return, Further diagnostic work-up, Recheck today's complaints, Continuance of care, Re-evaluation by your physician Discharge Instructions: - Discharge Summary Sheet kdr - Muscle Cramps and Spasms kdr - Spasticity kdr - Heat Therapy kdr Forms: - Medication Reconciliation Form kdr - Thank You Letter kdr Prescriptions: - Ibuprofen 600 mg Oral Tablet - take 1 tablet by ORAL route every 6 hours As needed take with food; 30 tablet; kdr Refills: 0, Product Selection Permitted - Cyclobenzaprine 10 mg Oral Tablet - take 1 tablet by ORAL route every 8 hours As needed; 12 tablet; Refills: 0, kdr Product Selection Permitted - Medrol (Clark) 4 mg Oral Tablets, Dose Pack - take 1 tablet by ORAL route as directed - follow package instructions; 1 kdr packet; Refills: 0, Product Selection Permitted Signatures: Dispatcher [employer] Bernardo Coleman MD MD kdr Monisha Doyle, RN RN aa5 Mere Duran RN RN ll1 Jah Centeno ad5
[2021-03-25 19:40] VITALS: TEMP 97.2
[2021-03-25 19:43] VITALS: BP 171/94; O2SAT 96
--- NOTE | 2021-03-27 07:47 | EKG ---
Test Date: 2021-03-25 Test Time: 18:16:34 Lead Relay Tester: MEASUREMENT RESULTS: Intervals: Rate: 65 CA: 168 QRSD: 122 QT: 442 QTc: 459 [place]: P: 71 CA: 168 QRS: -68 T: 73 INTERPRETIVE STATEMENTS: Normal sinus rhythm Right bundle branch block Left anterior fascicular block Bifascicular block Septal infarct, age undetermined Abnormal ECG Compared to ECG 05/12/2020 01:37:07 Atrial abnormality no longer present Bifascicular block still present Myocardial infarct finding still present Electronically Signed On 03-27-21 07:43:03 CDT by Raleigh Cornelius
== END 2021-03-25 19:23 | disposition home or self-care (01) ==
LOC: ER 16:16
DX: M62.830 Muscle spasm of back (principal); I10 Essential (primary) hypertension; F17.210 Nicotine dependence, cigarettes, uncomplicated; Z21 Asymptomatic human immunodeficiency virus [HIV] infection status
CPT/HCPCS: 96365; 93005; 71045; 96375; 99284; J2930; J2800

== ENCOUNTER 2021-09-28 11:39 | Emergency (ER) | payer OTHER ==
--- OUTSIDE RECORDS SUMMARY | 2021-09-28 11:41 | XMS REPORT | Continuity of Care Document ---
:1965 Author Organization [facility] t Address [address] [place] [address] [address] [place] [address] Care Team Providers Name Role Phone NICHOLE Primary Care Physician Unavailable Javier VELASCO Attending Clinician Unavailable JIHAN Attending Clinician Unavailable Anabella NEVAREZ Attending Clinician Unavailable Kelly LEE Attending Clinician Unavailable Kelly LEE Attending Clinician Unavailable Payers Payer Name Policy Type Policy Number Effective Date Expiration Date Poonam matamoros [facility] [employer] [facility] [id number] 2016 SSI 00:00:00 Problems This patient has no known problems. Allergies, Adverse Reactions, Alerts This patient has no known allergies or adverse reactions. Medications This patient has no known medications. Procedures This patient has no known procedures. Encounters Start End Encounter Admission Attending Care Care Encounter Source Date/Time Date/Time Type Type Clinicians Facility Department ID 2021-09-29 2021-09-29 Outpatient ROD [facility] [id number] [place] 00:00:00 00:00:00 [facility] 2021-09-15 2021-09-15 Outpatient [facility] [id number] [place] 00:00:00 00:00:00 [facility] 2021-08-25 2021-08-25 Outpatient [facility] [id number] [place] 11:18:18 11:19:02 [facility] 2021-07-30 2021-07-30 Outpatient JIHAN [facility] [id number] [place] 00:00:00 00:00:00 [facility] 2021-07-14 2021-07-14 Outpatient GERI [facility] [id number] [place] 00:00:00 00:00:00 [facility] 2021-07-14 2021-07-14 [facility] [id number] [place] 00:00:00 00:00:00 [facility] 2021-07-14 2021-07-14 Outpatient [facility] [id number] [place] 00:00:00 00:00:00 [facility] 2021-07-07 2021-07-07 [facility] [id number] [place] 10:07:03 11:38:26 [facility] 2021-07-02 2021-07-02 Outpatient KAROLINA-ALVAR [facility] [id number] [place] 00:00:00 00:00:00 [facility] 2021-05-20 2021-05-20 Outpatient [facility] [id number] [place] 10:50:33 10:54:26 [facility] 2021-05-20 2021-05-[address] [place] [address] [id number] [place] 10:50:33 10:54:26 [facility] 2021-05-20 2021-05-20 Outpatient [facility] [id number] [place] 00:00:00 00:00:00 [facility] 2021-03-19 2021-03-19 [id number] [place] 00:00:00 00:00:00 [facility] SALAS 2021-02-05 2021-02-05 Outpatient [facility] [id number] [place] 00:00:00 00:00:00 [facility] 2021-01-22 2021-01-22 Outpatient [facility] [id number] [place] 00:00:00 00:00:00 [facility] [facility] 2020-11-11 2020-11-11 [id number] [place] 00:00:00 00:00:00 LULY SALAS Results Test Description Test Time Test Comments Results Result Comments Source CD4+CD8+ Cells NFr Bld 2021-05-21 11:46:44 Test Item Value Reference Range Interpretation Comme nts T-cell CD4 subset pnl Bld 1069 cells/uL See_Comment [Automated message] The system (test code = 63632-6) which generated this result transmitted ref erence range: 431-1,623. The reference range was not used to interpret this result as papo l/abnormal. CD3+CD4+ Cells/CD3+CD8+ 0.97 ratio 0.86-2.05 Cells Bld (test code = 19432-6) CD4+CD8+ Cells NFr Bld 33.0 % 25.0-56.0 (test code = 77404-5) HIV1 RNA # Plas HIRAM [id number] 07:36:47 Test Item Value Reference Range Interpretation Comments HIV1 RNA SerPl Ql DETECTED Not detected A HIRAM+probe (test code = 15934-7) HIV1 RNA # Plas 98 copies/mL See_Comment H [Automated message] HIRAM DL=20 (test The system w [facility] code = 52147-5) generated th is result transmitted ref erence range: <=0. The reference range was not used to interpr et this result as normal/abnormal . HIV1 RNA SerPl HIRAM 1.99 Log10 See_Comment H [Automat ed message] DL=1.7-Log# (test The system which code = 48923-8) generated th is result transmitted ref erence range: <=0.00. The reference range was not used to interpr et this result as normal/abnormal . This test utilizes FDA cleared NOVA AmpliPrep/NOVA TaqMan HIV-1 test 2.0 from [employer] which allows quantitation of viral loads between 20 and 10,000,000 copies/mL of plasma. Whenthe result is positive but less than 20 copies/mL of HIV-1 RNA, the test result will be reported as detected but less than 20 copies/mL". The NOVA AmpliPrep/ NOVA TaqManHIV-1 test, version 2.0 is notintended for use as a screening test for the presence of HIV-1 RNA in blood or a diagnostic test to confirm the presence of HIV infection. This test is intended for use as an aid in the management of patients with HIV-1 infection.
[2021-09-28 13:27] LABS: SARS-COV-2 RT PCR POSITIVE (NEGATIVE)
--- NOTE | 2021-09-28 13:29 | ER ---
Nurse's Notes [facility] Name: Nisreen Dwyer Age: 56 yrs Sex: Female : 1965 Arrival Date: 09/28/2021 Time: 11:39 Bed Waiting Private MD: Diagnosis: Coronavirus infection, unspecified Presentation: 09/28 11:53 Chief complaint: Patient states: Cough, congestion, body aches for 2 days. No known ll1 fever. Coronavirus screen: Vaccine status: Patient reports receiving the 2nd dose of the covid vaccine. Client denies travel out of the [place] in the last 14 days. congestion, cough unrelated to allergies, headache, Client presents with at least one sign or symptom that may indicate coronavirus-19. Standard/surgical mask placed on the client. Ebola Screen: Patient denies travel to an Ebola-affected area in the 21 days before illness onset. Resp Distress? No respiratory distress is noted at this time. Initial Sepsis Screen: Does the patient meet any 2 criteria? No. Patient's initial sepsis screen is negative. Does the patient have a suspected source of infection? Yes: Productive cough/pneumonia. Risk Assessment: Do you want to hurt yourself or someone else? Patient reports no desire to harm self or others. Onset of symptoms was September 27, 2021. 11:53 Method Of Arrival: Ambulatory ll1 11:53 Acuity: VIVIANE 4 ll1 Triage Assessment: 11:56 General: Appears in no apparent distress. Behavior is calm, cooperative, appropriate ll1 for age. Pain: Denies pain. Respiratory: Reports cough that is Breath sounds are clear bilaterally. 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 - Social history:: Smoking status: Patient reports the use of cigarette tobacco products, smokes one-half pack cigarettes per day. Screenin:44 Abuse screen: Denies threats or abuse. Nutritional screening: No deficits noted. ll1 Tuberculosis screening: No symptoms or risk factors identified. 13:44 Fall Risk Total Hill Fall Scale indicates No Risk (0-24 pts). ll1 Assessment: 13:00 Reassessment: No changes from previously documented assessment. Patient and/or family ll1 updated on plan of care and expected duration. Pain level reassessed. Patient is alert, oriented x 3, equal unlabored respirations, skin warm/dry/pink. Respiratory: Airway is patent. 13:44 Cardiovascular: Capillary refill < 3 seconds Clubbing of nail beds is absent. ll1 13:45 Reassessment: No changes from previously documented assessment. Patient and/or family ll1 updated on plan of care and expected duration. Pain level reassessed. Patient is alert, oriented x 3, equal unlabored respirations, skin warm/dry/pink. Vital Signs: 11:53 BP 131 / 91; Pulse 92; Resp 18; Temp 97.2; Pulse Ox 95% ; Weight 63.5 kg; Height 5 ft. ll1 5 in. (165.10 cm); Pain 0/10; 13:43 BP 139 / 90; Pulse 84; Resp 17; Pulse Ox 99% on R/A; ll1 11:53 Body Mass Index 23.30 (63.50 kg, 165.10 cm) ll1 ED Course: 11:39 Patient arrived in ED. ds1 11:47 not in ED lobby. Told registration she was going to get some coffee. ll1 11:50 Rafaela Ugarte FNP-C [facility]. kb 11:50 Bart Sheikh MD is Attending Physician. kb 11:54 Triage completed. ll1 11:55 Arm band placed on. ll1 13:44 Patient has correct armband on for positive identification. Bed in low position. ll1 Cardiac monitoring not applicable on this patient. 13:44 No provider procedures requiring assistance completed. Patient did not have IV access ll1 during this emergency room visit. Administered Medications: No medications were administered Outcome: 13:28 Discharge ordered by . kb 13:44 Discharged to home ambulatory. ll1 13:44 Condition: stable 13:44 Discharge instructions given to patient, Instructed on discharge instructions, follow up and referral plans. Demonstrated understanding of instructions, follow-up care. 13:45 Patient left the ED. ll1 Signatures: Rafaela Ugarte FNP-C FNP-Ckb Sanford, Demi ds1 Mere Duran RN RN ll1
--- NOTE | 2021-09-28 13:29 | EDPHYS ---
Physician Documentation [facility] Name: Nisreen Dwyer Age: 56 yrs Sex: Female : 1965 Arrival Date: 09/28/2021 Time: 11:39 Bed Waiting Private MD: ED Physician Bart Sheikh HPI: 09/28 16:06 This 56 yrs old Black Female presents to ER via Ambulatory with complaints of kb Congestion, Body Aches. 16:06 The patient or guardian reports cough, that is intermittent, described as mild. Onset: kb The symptoms/episode began/occurred 2 day(s) ago. Severity of symptoms: At their worst the symptoms were moderate, in the emergency department the symptoms are unchanged. Modifying factors: The symptoms are alleviated by nothing, the symptoms are aggravated by nothing. Associated signs and symptoms: The patient has no apparent associated signs or symptoms. The patient has not experienced similar symptoms in the past. The patient has not recently seen a physician. Pt reports cough, congestion, sore throat and bodyaches for 2 days. 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 - Social history:: Smoking status: Patient reports the use of cigarette tobacco products, smokes one-half pack cigarettes per day. ROS: 16:06 Abdomen/GI: Negative for abdominal pain, nausea, vomiting, diarrhea, and constipation. kb 16:06 Constitutional: Positive for body aches, Negative for chills, fatigue, fever, malaise, poor PO intake, weight loss. 16:06 ENT: Positive for sinus congestion, sore throat. 16:06 Respiratory: Positive for cough, Negative for dyspnea on exertion, hemoptysis, orthopnea, pleurisy, shortness of breath, sputum production, wheezing. 16:06 All other systems are negative. Exam: 16:06 Constitutional: This is a well developed, well nourished patient who is awake, alert, kb and in no acute distress. Head/Face: Normocephalic, atraumatic. ENT: Moist Mucous membranes Cardiovascular: Regular rate and rhythm with a normal S1 and S2. No gallops, murmurs, or rubs. No pulse deficits. Respiratory: Respirations even and unlabored. No increased work of breathing. Talking in full sentences Skin: Warm, dry with normal turgor. Normal color. MS/ Extremity: Pulses equal, no cyanosis. Neurovascular intact. Full, normal range of motion. Neuro: Awake and alert, GCS 15, oriented to person, place, time, and situation. Moves all extremities. Normal gait. Psych: Awake, alert, with orientation to person, place and time. Behavior, mood, and affect are within normal limits. Vital Signs: 11:53 BP 131 / 91; Pulse 92; Resp 18; Temp 97.2; Pulse Ox 95% ; Weight 63.5 kg; Height 5 ft. ll1 5 in. (165.10 cm); Pain 0/10; 13:43 BP 139 / 90; Pulse 84; Resp 17; Pulse Ox 99% on R/A; ll1 11:53 Body Mass Index 23.30 (63.50 kg, 165.10 cm) ll1 MDM: 12:01 Patient medically screened. kb 13:27 Data reviewed: vital signs, nurses notes. Data interpreted: Pulse oximetry: on room air kb is 95 %. Interpretation: normal. 16:07 Counseling: I had a detailed discussion with the patient and/or guardian regarding: the kb historical points, exam findings, and any diagnostic results supporting the discharge/admit diagnosis, lab results, the need for outpatient follow up, a family practitioner, to return to the emergency department if symptoms worsen or persist or if there are any questions or concerns that arise at home. 09/28 12:04 Order name: COVID-19/FLU A+B (Document "Date of Onset" if Symptomatic); Complete Time: kb 13:28 Administered Medications: No medications were administered Disposition: 15:17 Co-signature as Attending Physician, Bart Sheikh MD I agree with the assessment and rn plan of care. Attestation: The patient's history, exam findings, diagnostics, and a summary of any interventions or procedures was reviewed in detail with Rafaela HENNESSY. Disposition Summary: 09/28/21 13:28 Discharge Ordered Location: Home kb Condition: Stable kb Diagnosis - Coronavirus infection, unspecified kb Followup: kb - With: Emergency Department - When: As needed - Reason: Worsening of condition Followup: kb - With: Private Physician - When: 2 - 3 days - Reason: Recheck today's complaints, Continuance of care, Re-evaluation by your physician Discharge Instructions: - Discharge Summary Sheet kb - Viral Respiratory Infection, [id number] kb - COVID-19 kb Forms: - Medication Reconciliation Form kb - Thank You Letter kb - Antibiotic Education kb - Prescription Opioid Use kb Signatures: Dispatcher [employer] EDRafaela Griffin, Bart Spaulding MD MD rn Mere Duran RN RN ll1 Corrections: (The following items were deleted from the chart) 16:07 16:06 ENT: Positive for sinus congestion, kb kb
[2021-09-28 14:43] VITALS: BP 139/90; O2SAT 99
[2021-09-28 14:45] VITALS: TEMP 97.2
== END 2021-09-28 13:45 | disposition home or self-care (01) ==
LOC: ER 11:39
DX: U07.1 COVID-19 (principal); Z21 Asymptomatic human immunodeficiency virus [HIV] infection status; I10 Essential (primary) hypertension
CPT/HCPCS: 0240U; 99281

== ENCOUNTER 2022-06-09 18:19 | Observation (INO) | payer OTHER ==
--- OUTSIDE RECORDS SUMMARY | 2022-06-09 18:24 | XMS REPORT | Continuity of Care Document ---
:[address] [facility] t Address [address] [place] [address] Care Team Providers Name Role Phone DEVONTE NICHOLE Primary Care Physician Unavailable Cresencio Stinson()Alejandra Attending Clinician [phone] ALEJANDRA DUPONT Attending Clinician Unavailable BAKARI PHILLIPS Attending Clinician Unavailable EUGENIO PRUITT Attending Clinician Unavailable IZABELLA JOYA Attending Clinician Unavailable Izabella Joya MD Attending Clinician Luly Lee MD Attending Clinician SULMA BOBO Attending Clinician Unavailable Bakari Phillips NP Attending Clinician LULY LEE Attending Clinician Unavailable Payers Payer Name Policy Type Policy Number Effective Date Expiration Date Poonam matamoros [facility] [id number] 2016 SSI 00:00:00 Problems Condition Condition Condition Status Onset Resolution Last Treating Co mments Source Name Details Category Date Date Treatment Clinician Date Dyslipidem Dyslipidem Disease Active 2011-09 H arris ia ia 09-25 Health 00:00: 00 HIV HIV Disease Recurre Quentin infection, infection, nce 5-10 He alth asymptomat asymptomat 00:00: ic ic 00 HSV HSV Disease Active Overview: Quentin [...] to biopsy these lesions at future date. Cervical Cervical Disease Active Overview: [facility] dysplasia dysplasia 5-10 [facility] [...] if high viremia. D/W GYNONC Dr Cross. Allergies, Adverse Reactions, Alerts This patient has no known allergies or adverse reactions. Family History Family Member Diagnosis Comments Start Date Stop Date Source Natural brother Heart [facility] Maternal grandmother Diabetes [facility] Maternal grandmother Heart [facility] Maternal grandmother Hypertension [facility] Natural mother Arthritis [facility] Natural mother Heart [facility] Natural mother Hypertension [facility] Other Sickle Cell [place] [facility] Social History Social Habit Start Date Stop Date Quantity Comments Source History SDOH [facility] Frequency History SDOH [facility] Std Drinks History SDMI [facility] Binge Alcohol intake 2022-01-13 2022-01-13 Current [facility] lt 00:00:00 00:00:00 non-drinker of alcohol (finding) Cigarettes smoked 2021-07-07 2021-07-07 [facility] current (pack per 00:00:00 00:00:00 day) - Reported Cigarette 2021-07-07 2021-07-07 [facility] pack-years 00:00:00 00:00:00 Tobacco use and 2021-07-07 2021-07-07 Smokeless tobacco [facility] exposure 00:00:00 00:00:00 non-user History [facility] Food 2018-09-05 2018-09-05 1 [facility] Worry 00:00:00 00:00:00 History [facility] Food 2018-09-05 2018-09-05 1 [facility] Scarcity 00:00:00 00:00:00 History of tobacco 2012-07-24 Current smoker [facility] use 00:00:00 History [facility] 2008-08-26 2008-08-26 None since [facility] Alcohol Comment 00:00:00 00:00:00 07/13/2008. Sex Assigned At [address] [facility] alth 00:00:00 00:00:00 Smoking Status Start Date Stop Date Source Ex-smoker 2021-07-07 00:00:00 2021-07-07 00:00:00 [facility] ealt Medications Ordered Filled Start Stop Current Ordering Indication Dosage Frequency Signature Comments Components Source Medication Medication Date Date Medication? Clinician (SIG) Name Name nicotine Yes Preventativ APPLY 1 [place] (NICODERM 04-27 e health PATCH TO [facility]) 14 00:00: care SKIN EVERY mg/24 hr 00 24 HOURS patch DIRECTED. albuterol Yes Uncomplicat 2{puff} Inhale 2 [place] 90 - ed asthma, Puffs by [facility] mcg/actuati 00:00: unspecified mouth 4 on inhaler 00 asthma times severity, daily as unspecified needed for whether Wheezing persistent Levalbutero 2021-2021- No Uncomplicat 45ug INHALE 1 [place] l Tartrate 03-10 07-22 ed asthma, PUFF BY [facility] 45 00:00: 00:00 unspecified MOUTH mcg/actuati 00 :00 asthma EVERY 4 on inhaler severity, HOURS unspecified NEEDED FOR whether WHEEZING persistent OR SHORTNESS OF BREATH. valACYclovi Yes HSV (herpes TAKE 1 [facility] (VALTREX) 6- simplex TABLET BY Health 1 g tablet 00:00: virus) MOUTH TWO 00 anogenital TIMES A infection DAY nicotine 2021- No Preventativ APPLY 1 [place] (NICODERM 6- e health PATCH TO [facility]) 14 00:00: 00:00 care SKIN EVERY mg/24 hr 00 :00 24 HOURS patch DIRECTED. bictegravir Yes HIV 1{tbl} QD Take 1 [facility] -emtricitab 4-19 infection, tablet by Health ine-tenofov 00:00: asymptomati mouth ir 00 c daily alafenamide (BIKTARVY) 50-200-25 mg tablet nicotine 2021- No Preventativ 1{patch APPLY 1 [place] (NICODERM 302-25 e health } PATCH TO [facility]) 14 00:00: 00:00 care SKIN mg/24 hr 00 :00 DIRECTED patch EVERY 24 HOURS budesonide- Yes HIV INHALE 2 [facility] formoteroL 2-28 infection, PUFFS BY Health (SYMBICORT 00:00: asymptomati MOUTH 2 HFA) 80-4.5 00 c TIMES mcg/actuati DAILY. on inhaler valACYclovi 2021- No HSV (herpes TAKE 1 [facility] (VALTREX) 2-10 03- simplex TABLET BY Health 1 g tablet 00:00: 00:00 virus) MOUTH TWO 00 :00 anogenital TIMES A infection DAY nicotine 2021- No Preventativ 1{patch APPLY 1 [place] (NICODERM 212-04 e health } PATCH TO [facility]) 14 00:00: 00:00 care SKIN mg/24 hr 00 :00 DIRECTED patch EVERY 24 HOURS budesonide- 2021- No HIV INHALE 2 H arris formoteroL 2-21 02-28 infection, PUFFS BY Health (SYMBICORT) 00:00: 00:00 asymptomati MOUTH 2 80-4.5 00 :00 c TIMES mcg/actuati DAILY. on inhaler BIKTARVY 2021- No HIV TAKE 1 [facility] 50-200-25 10-22 infection, TABLET BY [facility] mg tablet 00:00: 00:00 asymptomati MOUTH ONCE 00 :00 c DAILY Levalbutero 2021- No Uncomplicat 45ug INHALE 1 [facility] Tartrate 09-29 ed asthma, PUFF BY [facility] 45 00:00: 00:00 unspecified MOUTH mcg/actuati 00 :00 asthma EVERY 4 on inhaler severity, HOURS unspecified NEEDED FOR whether WHEEZING persistent OR SHORTNESS OF BREATH. nicotine 2021- No Preventativ 1{patch APPLY 1 [place] (NICODERM 09-29 e [employer] } PATCH TO [facility]) 14 00:00: 00:00 care SKIN mg/24 hr 00 :00 DIRECTED patch EVERY 24 HOURS. valACYclovi 2021- No HSV (herpes 1000mg Q.5D TAKE 1 [facility] [facility] (VALTREX) 09-20 simplex TABLET BY [employer] 1 g tablet 00:00: 00:00 virus) MOUTH 2 00 :00 anogenital TIMES infection DAILY. budesonide- 2020-09- No HIV INHALE 2 H arris formoteroL 11-02 infection, PUFFS BY [facility] (SYMBICORT) 00:00: 00:00 asymptomati MOUTH 2 80-4.5 00 :00 c TIMES mcg/actuati DAILY.. on inhaler nicotine 2020-09- No Preventativ 1{patch APPLY 1 [place] (NICODERM 11-02 e health } PATCH TO [facility]) 14 00:00: 00:00 care SKIN mg/24 hr 00 :00 DIRECTED patch EVERY 24 HOURS. Levalbutero 2020-09- No Uncomplicat 45ug INHALE 1 [facility] Tartrate 10-27 ed asthma, PUFF BY [facility] 45 00:00: 00:00 unspecified MOUTH mcg/actuati 00 :00 asthma EVERY 4 on inhaler severity, HOURS unspecified NEEDED FOR whether WHEEZING persistent OR SHORTNESS OF BREATH. nicotine 2020-09- No Preventativ 1{patch APPLY 1 [place] (NICODERM 16 14 e [facility] } PATCH TO H ealth CQ) 14 00:00: 00:00 care SKIN mg/24 hr 00 :00 DIRECTED patch EVERY 24 HOURS. nicotine 2020-09 Yes Preventativ Chew and [facility] polacrilex e [facility] ealth (NICORETTE) 00:00: care piece of 2 mg Gum 00 gum 3 times per day as needed. bictegravir 2020-09- No HIV 1{tbl} QD Take 1 H arris -emtricitab 10-22 infection, tablet by Health ine-tenofov 00:00: 00:00 asymptomati mouth ir 00 :00 c daily. alafenamide (BIKTARVY) 50-200-25 mg tablet budesonide- 2020-09- No HIV INHALE 2 H arris formoteroL 09-01 infection, PUFFS BY [employer] (SYMBICORT) 00:00: 00:00 asymptomati MOUTH 2 80-4.5 00 :00 c TIMES mcg/actuati DAILY. on inhaler Levalbutero 2020-09- No Uncomplicat 45ug Inhale 1 [facility] Tartrate 08-26 ed asthma, Puff by [employer] (XOPENEX 00:00: 00:00 unspecified mouth HFA) 45 00 :00 asthma every 4 mcg/actuati severity, hours as on inhaler unspecified needed for whether Wheezing persistent or Shortness of Breath. nicotine 2020-09- No Preventativ 1{patch Apply 1 [place] (NICODERM 0-16 e [facility] } Patch to H ealt CQ) 14 00:00: 00:00 care skin as mg/24 hr 00 :00 directed patch every 24 hours. valACYclovi 2021- No HSV (herpes 1000mg Q.5D TAKE 1 [place] r (VALTREX) 06-15 simplex TABLET BY Health 1 g tablet 00:00: 00:00 virus) MOUTH 2 00 :00 anogenital TIMES infection DAILY. budesonide- 2020- No HIV INHALE 2 H arris formoteroL 06-12 infection, PUFFS BY [employer] (SYMBICORT) 00:00: 00:00 asymptomati MOUTH 2 80-4.5 00 :00 c TIMES mcg/actuati DAILY. on inhaler Levalbutero 2020- No Uncomplicat 45ug Inhale 1 [place] l Tartrate 05-26 ed asthma, Puff by [facility] (XOPENEX 00:00: 00:00 unspecified mouth HFA) 45 00 :00 asthma every 4 mcg/actuati severity, hours as on inhaler unspecified needed for whether Wheezing persistent or Shortness of Breath. valACYclovi 2020- No HSV (herpes 1000mg Q.5D TAKE 1 [place] r (VALTREX) 05-18 simplex TABLET BY [facility] 1 g tablet 00:00: 00:00 virus) MOUTH 2 00 :00 anogenital TIMES infection DAILY. budesonide- 2020- No HIV INHALE 2 H arris formoteroL 05-05 infection, PUFFS BY [facility] (SYMBICORT) 00:00: 00:00 asymptomati MOUTH 2 80-4.5 00 :00 c TIMES mcg/actuati DAILY. on inhaler BIKTARVY 2020- No HIV TAKE 1 [place] 50-200-25 02-05 infection, TABLET BY [facility] mg tablet 00:00: 00:00 asymptomati MOUTH ONCE 00 :00 c DAILY Immunizations Ordered Immunization Filled Immunization Date Status Commen ts Source Name Name Influenza, 2021-07-07 Completed [facility] Vaccine<FLUCELVAX>(Mu 00:00:00 lti-Dose) Tdap (Tetanus Toxoid, 2021-07-07 Completed [facility] Reduced Diphtheria 00:00:00 Toxoid And Acellular Pertussis, Absorbed) Pfizer Sars-cov-2 2021-05-14 Completed [facility] Vaccination 00:00:00 Pfizer Sars-cov-2 2021-04-23 Completed [facility] Vaccination 00:00:00 PCV 13 (Pneumococcal 2018-09-05 Completed [facility] Conjugated 13 Valent) 00:00:00 Influenza, 2018-09-05 Completed [facility] Vaccine<FLUCELVAX>(Mu 00:00:00 lti-Dose) Hepatitis B Vaccine 2015-11-27 Completed [facility] 00:00:00 Influenza Vaccine 2015-06-26 Completed [facility] 00:00:00 Pneumococcal 2013-10-11 Completed [facility] 13-valent conj 0.5 mL 00:00:00 injection Influenza Vaccine 2013-10-11 Completed [facility] 00:00:00 PPD 2012-07-26 Completed [facility] 00:00:00 Influenza Vaccine 2012-07-26 Completed [facility] 00:00:00 Hepatitis B Vaccine 2012-03-23 Completed [facility] 00:00:00 PPV 23 Pneumococcal 2012-02-24 Completed [facility] Polysaccaride 00:00:00 Hepatitis B Vaccine 2012-02-24 Completed [facility] 00:00:00 Tdap Tetanus, 2011-08-23 Completed [facility] diphtheria, acellular 00:00:00 pertussis Vaccine Influenza Vaccine 2011-08-23 Completed [facility] 00:00:00 Influenza Vaccine 2010-07-31 Completed [facility] 00:00:00 Influenza Vaccine 2009-07-17 Completed [facility] 00:00:00 Vital Signs Vital Name Observation Time Observation Value Comments Source Systolic blood pressure 2022-01-05 10:28:00 154 mm[Hg] [facility] Diastolic blood pressure 2022-01-05 10:28:00 55 mm[Hg] [facility] Heart rate 2022-01-05 10:28:00 78 /min [facility] Body temperature 2022-01-05 10:28:00 36.44 Shanti [facility] Respiratory rate 2022-01-05 10:28:00 17 /min [facility] Body height 2022-01-05 10:28:00 165.1 cm [facility] Body weight 2022-01-05 10:28:00 62.052 kg [facility] BMI 2022-01-05 10:28:00 22.76 kg/m2 [facility] Oxygen saturation in 2022-01-05 10:28:00 99 /min [facility] Arterial blood by Pulse oximetry Procedures Procedure Date / Time Performed Performing Clinician Sour e BASIC METABOLIC PANEL 2021-12-29 10:10:00 Alejandra Dupont [facility] CD4/CD8 RATIO GRP 2021-12-29 10:10:00 Alejandra Dupont [facility] CBC/DIFF 2021-12-29 10:10:00 Alejandra Dupont [facility] CBC 2021-12-29 10:10:00 Alejandra Dupont [facility] RBC MORPHOLOGY-WAM 2021-12-29 10:10:00 Alejandra Dupont is Health HIV-1/HIV-2,RNA QUAL 2021-12-29 10:10:00 Alejandra Dupont [facility] LIVER PROFILE 2021-12-29 10:10:00 Alejandra Dupont [facility] FECAL OCCULT BLOOD 2021-08-25 11:18:00 Alejandra Dupont is [facility] HEMOCCULT KIT FOR SPECIMEN 2021-07-07 11:01:40 Aston Dupont [facility] COLLECTION AT HOME Plan of Care Planned Activity Planned Date Details Comments Source Future Scheduled Test 2022-06-19 IMM Influenza Seasonal [facility] 00:00:00 (>/= 19 yrs) [code = IMM Influenza Seasonal (>/= 19 yrs)] Future Scheduled Test 2021-06-11 COVID-19 Vaccine (3 - [facility] 00:00:00 Pfizer risk series) [code = COVID-19 Vaccine (3 - Pfizer risk series)] Future Scheduled Test 2019-09-05 Imm Pneumococcal 0-64 [facility] 00:00:00 (3 - PPSV23 or PCV20) [code = Imm Pneumococcal 0-64 (3 - PPSV23 or PCV20)] Future Scheduled Test 2016 Screening for malignant [place] [facility] 00:00:00 neoplasm of colon (procedure) [code = 805366837] Future Scheduled Test 2016 Screening for malignant [place] [facility] 00:00:00 neoplasm of colon (procedure) [code = 004880060] Future Scheduled Test 2016 Screening for malignant [place] [facility] 00:00:00 neoplasm of colon (procedure) [code = 628855492] Future Scheduled Test 2016 Screening for malignant [place] [facility] 00:00:00 neoplasm of colon (procedure) [code = 312848218] Future Scheduled Test 2016 Screening for malignant [place] [facility] 00:00:00 neoplasm of colon (procedure) [code = 899370858] Future Scheduled Test 2013-10-28 Breast Cancer Scrn [facility] 00:00:00 (Yearly) [code = Breast Cancer Scrn (Yearly)] Future Scheduled Test 1996 Screening for malignant [facility] 00:00:00 neoplasm of cervix (procedure) [code = 644117168] Future Scheduled Test 1996 Screening for malignant [facility] 00:00:00 neoplasm of cervix (procedure) [code = 615250269] Future Scheduled Test 1965 Fluoride Varnish [code [facility] 00:00:00 = Fluoride Varnish] Encounters Start End Encounter Admission Attending Care Care Encounter Source Date/Time Date/Time Type Type Clinicians Facility Department ID 2022-05-17 2022-05-17 Refill Dupont, [facility] [id number] [place] 00:00:00 00:00:00 [facility] 2022-04-28 2022-04-28 Refill Dupont, [facility] [id number] [place] 00:00:00 00:00:00 Ravenna J [facility] 2022-04-14 2022-04-14 Refill Dupont, [facility] [id number] [place] 00:00:00 00:00:00 Ravenna J [facility] 2022-04-13 2022-04-13 Outpatient DUPONT, [facility] [id number] [place] 00:00:00 00:00:00 [facility] 2022-03-15 2022-03-15 Outpatient [facility] [id number] [place] 00:00:00 00:00:00 [facility] 2022-02-23 2022-02-23 Refill Dupont, [facility] [id number] [place] 00:00:00 00:00:00 Ravenna J [facility] 2022-02-17 2022-02-17 Refill Dupont, [facility] [id number] [place] 00:00:00 00:00:00 Ravenna J [facility] 2022-02-16 2022-02-16 Refill Dupont, [facility] [id number] [place] 00:00:00 00:00:00 Alejandra J [facility] 2022-02-04 2022-02-04 Outpatient PHILLIPS, [facility] [id number] [place] 00:00:00 00:00:00 [facility] 2022-01-19 2022-01-19 Refill Dupont, [facility] [id number] [place] 00:00:00 00:00:00 Alejandra J [facility] 2022-01-07 2022-01-07 Outpatient SONAL, [facility] [id number] [place] 00:00:00 00:00:00 EUGENIO Hayden 2022-01-05 2022-01-05 Outpatient JOYA, [facility] [id number] [place] 10:28:14 11:57:59 [facility] 2022-01-05 2022-01-05 Office Alejandra Dupont [facility] [id number] [place] 09:40:00 11:57:59 Visit [facility] 2021-12-29 2021-12-29 Outpatient JOYA, [facility] [id number] [place] 10:04:05 10:10:14 [facility] 2021-12-29 2021-12-29 Outpatient 3 [facility] [id number] [place] 10:04:05 10:10:14 Health 2021-12-29 2021-12-29 Outpatient JOYA, [facility] [id number] [place] 00:00:00 00:00:00 [facility] 2021-12-28 2021-12-28 Outpatient JOYA, [facility] [id number] [place] 00:00:00 00:00:00 [facility] 2021-12-25 2021-12-25 Outpatient [facility] [id number] [place] 00:00:00 00:00:00 [facility] 2021-12-21 2021-12-21 Outpatient [facility] [id number] [place] 00:00:00 00:00:00 [facility] 2021-12-08 2021-12-08 Outpatient CRESENCIO, [facility] [id number] [place] 00:00:00 00:00:00 [facility] 2021-12-02 2021-12-02 Refill Cresencio [facility] [id number] [place] 00:00:00 00:00:00 Alejandra J Heal 2021-11-10 2021-11-10 Refill Papo [facility] [id number] [place] 00:00:00 00:00:00 Luly [facility]as [facility] 2021-11-09 2021-11-09 Refill Papo [facility] [id number] [place] 00:00:00 00:00:00 Luly salas [facility] 2021-10-22 2021-10-22 Refill Cresencio, [facility] [id number] [place] 00:00:00 00:00:00 Alejandra J Heal 2021-10-21 2021-10-21 Refill Papo [facility] [id number] [place] 00:00:00 00:00:00 Luly salas [facility] 2021-10-16 2021-10-16 Refill Papo [facility] [id number] [place] 00:00:00 00:00:00 Luly salas [facility] 2021-10-13 2021-10-13 [facility] [id number] [place] 00:00:00 00:00:00 [facility] 2021-09-29 2021-09-29 Outpatient CRESENCIO, [facility] [id number] [place] 00:00:00 00:00:00 [facility] 2021-09-23 2021-09-23 [facility] [id number] [place] 00:00:00 00:00:00 Alejandra J [facility] 2021-09-17 2021-09-17 Refill Papo [facility] [id number] [place] 00:00:00 00:00:00 Luly salas [facility] 2021-09-15 2021-09-15 Outpatient [facility] [id number] [place] 00:00:00 00:00:00 [facility] 2021-09-11 2021-09-11 [facility] [id number] [place] 00:00:00 00:00:00 Luly salas [facility] 2021-09-01 2021-09-01 Refill Papo [facility] [id number] [place] 00:00:00 00:00:00 Luly salas [facility] 2021-08-27 2021-08-27 Orders Cresencio, [facility] [id number] [place] 00:00:00 00:00:00 Only Alejandra J Heal 2021-08-27 2021-08-27 [facility] [id number] [place] 00:00:00 00:00:00 Alejandra J Heal 2021-08-25 2021-08-25 Outpatient [facility] [id number] [place] 11:18:18 11:19:02 [facility] 2021-08-19 2021-08-19 Refill Papo [facility] [id number] [place] 00:00:00 00:00:00 Luly salas [facility] 2021-07-30 2021-07-30 [facility] [id number] [place] 00:00:00 00:00:00 [facility] 2021-07-30 2021-07-30 [facility] [id number] [place] 00:00:00 00:00:00 Alejandra J Heal 2021-07-14 2021-07-14 Outpatient [facility] [id number] [place] 00:00:00 00:00:00 [facility] 2021-07-14 2021-07-14 Outpatient [facility] [id number] [place] 00:00:00 00:00:00 [facility] 2021-07-14 2021-07-14 Outpatient [facility] [id number] [place] 00:00:00 00:00:00 [facility] 2021-07-09 2021-07-09 [facility] [id number] [place] 00:00:00 00:00:[facility] 2021-07-07 [facility] [id number] [place] 10:07:03 11:38:26 [facility] 2021-07-07 2021-07-07 [facility] [id number] [place] 09:40:00 11:38:26 Visit Alejandra J Heal 2021-07-02 2021-07-02 Outpatient PAPO [facility] [id number] [place] 00:00:00 00:00:00 LULY SALAS h 2021-06-13 2021-06-13 Refill Papo [facility] [id number] [place] 00:00:00 00:00:00 Luly salas [facility] 2021-06-11 2021-06-11 Refill Papo [facility] [id number] [place] 00:00:00 00:00:00 Luly salas [facility] 2021-05-20 2021-05-20 Outpatient [facility] [id number] [place] 10:50:33 10:54:26 LULY SALAS 2021-05-20 2021-05-20 Outpatient 3 [facility] [id number] [place] 10:50:33 10:54:26 Health 2021-05-20 2021-05-20 Outpatient [facility] [id number] [place] 00:00:00 00:00:[facility] 2021-03-19 2021-03-19 Outpatient [facility] [id number] [place] 00:00:00 00:00:00 LULY SALAS 2021-02-05 2021-02-05 Outpatient [facility] [id number] [place] 00:00:00 00:00:[facility] 2021-01-22 2021-01-22 Outpatient [facility] [id number] [place] 00:00:00 00:00:00 [facility] 2020-11-11 2020-11-11 Outpatient [facility] [id number] [place] 00:00:00 00:00:00 LULY SALAS Results Test Description Test Time Test Comments Results Result Comments Source CD4+CD8+ Cells NFr Bld 2021-12-30 10:25:32 Test Item Value Reference Range Interpretation Comme nts T-cell CD4 subset pnl Bld 1254 cells/uL See_Comment [Automated message] The system (test code = 61017-6) which generated this result transmitted ref erence range: 431-1,623. The reference range was not used to interpret this result as papo l/abnormal. CD3+CD4+ Cells/CD3+CD8+ 1.12 ratio 0.86-2.05 Cells Bld (test code = 52443-5) CD4+CD8+ Cells NFr Bld 38.0 % 25.0-56.0 (test code = 66256-1) CD4+CD8+ Cells NFr [id number] 11:46:44 Test Item Value Reference Range Interpretation Comments T-cell CD4 subset 1069 cells/uL See_Comment [Automat ed message] pnl Bld (test code The syste m which = 69156-6) generated this result transmitted ref erence range: 431-1,62 3. The reference range was not used to int erpret this result as normal/abnormal . CD3+CD4+ 0.97 ratio 0.86-2.05 Cells/CD3+CD8+ Cells Bld (test code = 63240-4) CD4+CD8+ Cells NFr 33.0 % 25.0-56.0 Bld (test code = 53868-5) HIV1 RNA # Plas HIRAM [id number] 07:36:47 Test Item Value Reference Range Interpretation Comments HIV1 RNA SerPl Ql DETECTED Not detected A HIRAM+probe (test code = 29409-1) HIV1 RNA # Plas 98 copies/mL See_Comment H [Automated message] HIRAM DL=20 (test The system w [facility] code = 32375-7) generated th is result transmitted ref erence range: <=0. The reference range was not used to interpr et this result as normal/abnormal . HIV1 RNA SerPl HIRAM 1.99 Log10 See_Comment H [Automat ed message] DL=1.7-Log# (test The system which code = 33737-2) generated th is result transmitted ref erence range: <=0.00. The reference range was not used to interpr et this result as normal/abnormal . This test utilizes FDA cleared NOVA AmpliPrep/NOVA TaqMan HIV-1 test 2.0 from [employer] which allows quantitation of viral loads between [...]
[2022-06-09 20:40] LABS: Absolute Lymphocytes (CBC) 2.3 K/uL (0.7-4.9); Hematocrit 43.2 % (36.0-45.0); Lymphocytes % 39.4 % (15.3-44.8); MCV 96.4 fL (80-100); MPV 8.2 fL (7.6-11.3); RBC Red Blood Cell Count 4.48 M/uL (3.86-4.86)
--- NOTE | 2022-06-09 20:43 | RAD REPORT ---
EXAM DESCRIPTION: RAD - Chest Single View - 06/09/2022 8:33 pm CLINICAL HISTORY: CHEST PAIN Chest pain. COMPARISON: Chest Single View dated 03/25/2021; Chest Single View dated 05/12/2020; Chest Single View d ated 12/04/2019; Chest Pa And Lat (2 Views) dated 06/12/2018 FINDINGS: Portable technique limits examination quality. The lungs are grossly clear. The heart is normal in size. No displaced fractures. IMPRESSION: No acute intrathoracic process suspected.
[2022-06-09 21:41] LABS: Troponin High Sensitivity 6.5 pg/mL (<58.9)
[2022-06-09 21:56] LABS: Magnesium 1.9 mg/dL (1.8-2.4); Potassium 4.8 mmol/L (3.5-5.1)
--- NOTE | 2022-06-09 22:40 | RAD REPORT ---
EXAM DESCRIPTION: CT - Angio Aorta For Dissection - 06/09/2022 10:26 pm CLINICAL HISTORY: Chest pain radiating to the back. Chest pain COMPARISON: No comparisons TECHNIQUE: CT angiography of the aorta was performed with MIPs. All CT scans are performed using dose optimization technique as appropriate and may include automated exposure control or mA/KV adjustment according to patient size. FINDINGS: A left aortic arch is present with normal branching pattern of the great vessels.No acute aortic finding is seen such as aneurysm, penetrating ulcer or dissection. The celiac axis, SMA, SHEA and renal arteries are patent. No evidence of pulmonary embolism. The lungs are clear scan for mild atelectasis both lung bases. The liver demonstrates no focal mass or biliary dilatation.The spleen, pancreas, adrenal glands and k idneys are within normal limits for arterial phase imaging. No bowel obstruction, free fluid or abscess.No pathologic enlarged lymphadenopathy identified. No fracture or worrisome bone lesion seen. IMPRESSION: No acute aortic finding is demonstrated.
[2022-06-09 23:35] LABS: SARS-CoV-2 Antigen Rapid Res Negative (Negative)
--- NOTE | 2022-06-10 00:34 | EDPHYS ---
Physician Documentation [facility] Name: Nisreen Dwyer Age: 56 yrs Sex: Female : 1965 Arrival Date: 06/09/2022 Time: 19:05 Bed 20 Private MD: ED Physician Preston Zhao HPI: 06/09 21:07 This 56 yrs old Black Female presents to ER via EMS with complaints of Shortness Of ms3 Breath, Chest Pressure. 21:07 56-year-old female with past medical history of asthma, HIV, hypertension presents for ms3 shortness of breath that began at 5 PM. Patient states she is having moderate substernal chest pressure. Patient was given nitroglycerin by EMS that she states helped. Patient denies nausea, vomiting. Patient endorses diaphoresis.. Historical: - Allergies: 19:07 NKA; ss - PMHx: 19:07 Asthma; HIV positive; Hypertension; ss - Social history:: Smoking status: Patient reports the use of cigarette tobacco products, smokes one-half pack cigarettes per day. ROS: 21:07 Constitutional: Negative for fever, and chills. ENT: Negative for injury, pain, and ms3 discharge, Neck: Negative for injury, pain, and swelling. 21:07 MS/Extremity: Negative for injury and deformity, Skin: Negative for injury, rash, and discoloration, Neuro: Negative for headache, weakness, numbness, tingling. 21:07 Cardiovascular: Positive for chest pain. 21:07 Respiratory: Positive for shortness of breath. 21:07 All other systems are negative. Exam: 20:07 ECG was reviewed by the Attending Physician. ms3 21:07 Constitutional: This is a well developed, well nourished patient who is awake, alert, ms3 and in no acute distress. Neck: Trachea midline, no cervical lymphadenopathy. Supple, full range of motion without nuchal rigidity, or vertebral point tenderness. No Meningismus. Chest/axilla: Normal chest wall appearance and motion. Nontender with no deformity. Cardiovascular: Regular rate and rhythm with a normal S1 and S2. No gallops, murmurs, or rubs. Normal PMI, no JVD. No pulse deficits. Respiratory: Lungs have equal breath sounds bilaterally, clear to auscultation and percussion. No rales, rhonchi or wheezes noted. No increased work of breathing, no retractions or nasal flaring. Abdomen/GI: Soft, non-tender, with normal bowel sounds. No distension or tympany. No guarding or rebound. No evidence of tenderness throughout. Back: No spinal tenderness. No costovertebral tenderness. Full range of motion. Skin: Warm, dry with normal turgor. Normal color with no rashes, no lesions, and no evidence of cellulitis. MS/ Extremity: Pulses equal, no cyanosis. Neurovascular intact. Full, normal range of motion. Psych: Awake, alert, with orientation to person, place and time. Behavior, mood, and affect are within normal limits. Vital Signs: 19:05 BP 172 / 87; Pulse 70; Resp 18; Temp 98.2(TE); Pulse Ox 100% on R/A; Weight 63.5 kg; ss Height 5 ft. 5 in. (165.10 cm); Pain 0/10; 19:28 BP 151 / 115; Pulse 81; Resp 15 S; Pulse Ox 100% on R/A; ha1 20:00 BP 174 / 97; Pulse 78; Resp 19; Pulse Ox 100% on R/A; vc1 21:00 BP 158 / 96; Pulse 62; Resp 18; Pulse Ox 99% ; vc1 22:30 BP 186 / 87; Pulse 56; Resp 16; Pulse Ox 100% on R/A; vc1 23:35 BP 162 / 96; Pulse 63; Resp 18; Pulse Ox 100% ; vc1 19:05 Body Mass Index 23.30 (63.50 kg, 165.10 cm) ss MDM: 20:10 Patient medically screened. ms3 21:07 Differential diagnosis: Myocardial Infarction pneumonia, Pneumothorax pulmonary edema. ms3 06/10 03:09 Data reviewed: vital signs, nurses notes, lab test result(s), EKG, radiologic studies, ms3 and as a result, I will admit patient. Counseling: I had a detailed discussion with the patient and/or guardian regarding: the historical points, exam findings, and any diagnostic results supporting the discharge/admit diagnosis, lab results, radiology results, the need for further work-up and treatment in the hospital. ED course: Discussed case with LEXIS Santiago, and she accepts patient on behalf of Dr. Johnson. All questions were answered. Discussed plan for observation with patient. Patient understands and agrees with plan.. 06/09 20:04 Order name: Basic Metabolic Panel; Complete Time: 00:29 ms3 06/09 20:04 Order name: CBC with Diff ms3 06/09 20:04 Order name: Magnesium; Complete Time: 00:29 ms3 06/09 20:04 Order name: NT PRO-BNP; Complete Time: 00:29 ms3 06/09 20:04 Order name: Troponin HS; Complete Time: 00:29 ms3 06/09 20:42 Order name: CBC with Automated Diff; Complete Time: 00:29 EDMS 06/09 20:04 Order name: XRAY Chest (1 view) ms3 06/09 20:04 Order name: CT Aorta for Dissection; Complete Time: 00:29 ms3 06/09 20:44 Order name: RAD; Complete Time: 00:29 EDMS 06/09 21:58 Order name: SARS RAPID; Complete Time: 00:29 ms3 06/10 03:07 Order name: Urine Drug Screen; Complete Time: 19:53 EDMS 06/10 03:41 Order name: Troponin High Sensitivity; Complete Time: 19:53 EDMS 06/10 03:41 Order name: Lipid Profile; Complete Time: 19:53 EDMS 06/10 03:41 Order name: Thyroid Stimulating Hormone; Complete Time: 19:53 EDMS 06/09 20:04 Order name: EKG; Complete Time: 20:05 ms3 06/09 20:04 Order name: Cardiac monitoring; Complete Time: 20:06 ms3 06/09 20:04 Order name: EKG - Nurse/Tech; Complete Time: 20:06 ms3 06/09 20:04 Order name: IV Saline Lock; Complete Time: 21:16 ms3 06/09 20:04 Order name: Labs collected and sent; Complete Time: 20:36 ms3 06/09 20:04 Order name: O2 Per Protocol; Complete Time: 21:16 ms3 06/09 20:04 Order name: O2 Sat Monitoring; Complete Time: 21:16 ms3 06/11 09:39 Order name: NM EDMS EC/21 20:07 Rate is 63 beats/min. Rhythm is regular. QRS [place] is Normal. TX interval is normal. ms3 Clinical impression: NSR with RBBB. Interpreted by me. Reviewed by me. Administered Medications: No medications were administered Disposition Summary: 06/10/22 00:33 Hospitalization Ordered Hospitalization Status: Observation ms3 Provider: Sundar Johnson ms3 Condition: Stable ms3 Problem: new ms3 Symptoms: are unchanged ms3 Bed/Room Type: Standard ms3 Location: [facility] ER HOLD(06/10/22 00:39) eb1 Room Assignment: ERHOLD-(06/10/22 00:39) eb1 Diagnosis - Chest pain, unspecified ms3 - Shortness of breath ms3 Forms: - Medication Reconciliation Form ms3 - SBAR form ms3 Signatures: Dispatcher [employer] EDLeighann Schwab RN RN ss Beverly Orozco RN RN eb1 Preston Zhao DO DO ms3 Corrections: (The following items were deleted from the chart) 06/10 00:39 00:33 Telemetry/MedSurg (observation) ms3 eb1 00:39 00:33 ms3 eb1
--- NOTE | 2022-06-10 00:34 | ER ---
Nurse's Notes [facility] Name: Nisreen Dwyer Age: 56 yrs Sex: Female : 1965 Arrival Date: 06/09/2022 Time: 19:05 Bed 20 Private MD: Diagnosis: Chest pain, unspecified;Shortness of breath Presentation: 06/09 19:05 Chief complaint: Patient states: Woke up this morning with shortness of breath and ss chest pressure. Nitro x 2 and 324 ASA given en route to ED. Pt states that pain has greatly improved, but still feels a little nauseous. Coronavirus screen: Client denies travel out of the [place] in the last 14 days. Ebola Screen: Patient denies exposure to infectious person. Patient denies travel to an Ebola-affected area in the 21 days before illness onset. Initial Sepsis Screen: Does the patient meet any 2 criteria? No. Patient's initial sepsis screen is negative. Does the patient have a suspected source of infection? No. Patient's initial sepsis screen is negative. Risk Assessment: Do you want to hurt yourself or someone else? Patient reports no desire to harm self or others. Onset of symptoms was June 09, 2022. Care prior to arrival: IV initiated. 20 GA, in the left antecubital area. 19:05 Method Of Arrival: EMS: [facility] 19:05 Acuity: VIVIANE 2 ss Triage Assessment: 19:24 General: Appears comfortable, Behavior is calm, cooperative. Pain: Denies pain. EENT: ha1 No deficits noted. No signs and/or symptoms were reported regarding the EENT system. Neuro: Level of Consciousness is awake, alert, obeys commands, Oriented to person, place, time, situation. Cardiovascular: Reports diaphoresis, shortness of breath, chest pressure Heart tones S1 S2 Capillary refill < 3 seconds Patient's skin is warm and dry. Rhythm is sinus rhythm. Respiratory: Reports shortness of breath at rest on exertion Airway is patent Trachea midline Respiratory effort is even, unlabored, Respiratory pattern is regular, symmetrical, Onset: The symptoms/episode began/occurred today, the patient has moderate shortness of breath. GI: No signs and/or symptoms were reported involving the gastrointestinal system. : No signs and/or symptoms were reported regarding the genitourinary system. Musculoskeletal: Capillary refill < 3 seconds, Range of motion: intact in all extremities. Historical: - Allergies: 19:07 NKA; ss - PMHx: 19:07 Asthma; HIV positive; Hypertension; ss - Social history:: Smoking status: Patient reports the use of cigarette tobacco products, smokes one-half pack cigarettes per day. Screenin:28 Abuse screen: Denies threats or abuse. Denies injuries from another. Nutritional ha1 screening: No deficits noted. Tuberculosis screening: No symptoms or risk factors identified. Fall Risk None identified. Assessment: 19:27 General: see triage. ha1 21:00 Reassessment: Patient and/or family updated on plan of care and expected duration. Pain vc1 level reassessed. Patient is alert, oriented x 3, equal unlabored respirations, skin warm/dry/pink. Patient states symptoms have improved. Cardiovascular: Reports chest pain. Cardiovascular: Reports shortness of breath. Respiratory: Airway is patent Respiratory effort is even, unlabored, Respiratory pattern is regular, symmetrical, Breath sounds are clear. 22:00 Cardiovascular: Chest pain is described as severe. vc1 23:35 Reassessment: Patient and/or family updated on plan of care and expected duration. Pain vc1 level reassessed. Patient is alert, oriented x 3, equal unlabored respirations, skin warm/dry/pink. Patient states symptoms have improved. Vital Signs: 19:05 BP 172 / 87; Pulse 70; Resp 18; Temp 98.2(TE); Pulse Ox 100% on R/A; Weight 63.5 kg; Height 5 ft. 5 in. (165.10 cm); Pain 0/10; 19:28 BP 151 / 115; Pulse 81; Resp 15 S; Pulse Ox 100% on R/A; ha1 20:00 BP 174 / 97; Pulse 78; Resp 19; Pulse Ox 100% on R/A; vc1 21:00 BP 158 / 96; Pulse 62; Resp 18; Pulse Ox 99% ; vc1 22:30 BP 186 / 87; Pulse 56; Resp 16; Pulse Ox 100% on R/A; vc1 23:35 BP 162 / 96; Pulse 63; Resp 18; Pulse Ox 100% ; vc1 19:05 Body Mass Index 23.30 (63.50 kg, 165.10 cm) ED Course: 19:05 Patient arrived in ED. ss 19:07 Triage completed. ss 19:07 Kristi Diaz, RN is Primary Nurse. ko1 19:07 Arm band placed on right wrist. ss 19:14 Preston Zhao DO is Attending Physician. ms3 19:28 Allergy band placed. Bed in low position. Call light in reach. Side rails up X 1. ha1 22:28 CT Aorta for Dissection In Process Unspecified. EDMS 06/10 00:32 Sundar Johnson MD is Hospitalizing Provider. ms3 00:45 No provider procedures requiring assistance completed. Patient admitted, IV remains in vc1 place. 19:42 IV discontinued, intact, bleeding controlled, No redness/swelling at site. Pressure ja4 dressing applied, pt requested. 20:23 Primary Nurse role handed off by Kristi Diaz, SONI way 20:23 Que Darnell, SONI is Primary Nurse. [facility] 06/11 08:22 Primary Nurse role handed off by Que Darnell RN Administered Medications: No medications were administered Medication: 06/09 23:35 VIS not applicable for this client. vc1 Outcome: 06/10 00:33 Decision to Hospitalize by Provider. ms3 00:45 Admitted to ER Hold. Please see [facility] for further documentation. vc1 00:45 Condition: good 00:45 Instructed on the need for admit. 06/11 10:31 Patient left the ED. em6 Signatures: Dispatcher [employer] EDNE Leighann Castellanos RN RN Kaylynn Stringer Preston Zhao DO DO ms3 Shayla Trevizo RN RN vc1 Sissy Bergeron RN RN ha1 Cyndie Faulkner RN RN em6 Que Darnell RN RN ja4 Kristi Diaz, RN RN paul1
--- NOTE | 2022-06-10 02:00 | P.HP ---
Certification for Inpatient Patient admitted to: Observation With expected LOS: <2 Midnights Patient will require the following post-hospital care: None Practitioner: I am a practitioner with admitting privileges, knowledge of patient current condition, hospital course, and medical plan of care. Services: Services provided to patient in accordance with Admission requirements found in Title 42 Section 412.3 of the Code of Federal Regulations Patient History Date of Service: 06/10/22 Reason for admission: Chest Pain History of Present Illness: Patient is a 56 year-old female with history of hypertension, HIV, and asthma who presented to the ED via EMS with complaints of sudden onset shortness of breath. Patient reports that she woke up this morning feeling short of breath and with chest pressure, also associated with nausea. EMS administered 324 mg aspirin and nitro en route. Her EKG showed right bundle branch block with nonspecific ST changes. Labs and imaging unremarkable. Troponin negative. No medications administered in ED. Patient reports that her pain has now resolved. ED provider wishes to admit patient for observation. Allergies No Known Allergies Allergy (Unverified 12/16/11 12:16) Home medications list reviewed: Yes Home Medications: Atazanavir Sulfate 300 mg PO DAILY 06/11/18 Emtricitabine/Tenofovir [Truvada* 200 mg-300 mg Tablet] 1 tab PO DAILY 06/11/18 Ritonavir 100 mg PO DAILY 06/11/18 Valacyclovir [Valtrex*] 500 mg PO BID 06/11/18 Albuterol Sulfate [Proair Hfa] 8.5 gm IH TID PRN #1 [email or web address] 06/12/18 Fluticasone/Salmeterol [Advair 250-50 Diskus] 1 each IH BID #1 blst.w.dev 06/12/18 predniSONE [Prednisone*] 20 mg PO SEECOM #5 tab 06/12/18 - Past Medical/Surgical History Diabetic: No -: HIV -: Hypertension -: Asthma -: Tobacco abuse -: Cocaine abuse -: THC abuse Past Surgical History: Patient denies surgical history Psychosocial/ Personal History: Patient is single. She has 3 children. She does not work. - Family History Family History: Reviewed- Non-Contributory - Social History Smoking Status: Current every day smoker Alcohol use: Yes CD- Drugs: Yes Caffeine use: Yes Place of Residence: Home Review of Systems Respiratory: Shortness of Breath Cardiovascular: Chest Pain Physical Examination - Physical Exam General: Alert, In no apparent distress HEENT: Atraumatic, PERRLA, EOMI, Sclerae nonicteric Neck: Supple, 2+ carotid pulse no bruit, No LAD, Without JVD or thyroid abnormality Respiratory: Clear to auscultation bilaterally, Normal air movement Cardiovascular: Regular rate/rhythm, Normal S1 S2 Gastrointestinal: Normal bowel sounds, No tenderness Musculoskeletal: No tenderness Integumentary: No rashes Neurological: Normal speech, Normal strength at 5/5 x4 extr, Normal tone, Normal affect - Studies Laboratory Data (last 24 hrs) 06/09/22 21:09: Sodium 139, Potassium 4.8, BUN 18, Creatinine 1.14, Glucose 104, Magnesium 1.9 06/09/22 20:31: WBC 5.80, Hgb 14.3, Hct 43.2, Plt Count 224 Assessment and Plan - Problems (Diagnosis) (1) Chest pain Current Visit: Yes Status: Acute Qualifiers: Chest pain type: unspecified Qualified Code(s): R07.9 - Chest pain, unspecified (2) Hypertension Current Visit: Yes Status: Chronic (3) Tobacco abuse Current Visit: Yes Status: Chronic (4) HIV positive Current Visit: Yes Status: Chronic - Plan -Patient is admitted for observation -Cardiology consult -Echo ordered -Trend troponin -Monitor on telemetry -Aspirin and atorvastatin daily -Lipid panel and TSH -Monitor and replete electrolytes per protocol -Reconcile and continue home medications -Lovenox for VTE ppx -Full code Discharge Plan: Home Plan to discharge in: 24 Hours - Advance Directives Does patient have a Living Will: No Does patient have a Durable POA for Healthcare: No - Code Status/Comfort Care Code Status Assessed: Yes (Full) Critical Care: No Time Spent Managing Pts Care (In Minutes): 50
[2022-06-10] MEDS ORDERED: ONDANSETRON 4 MG/2 ML VIAL IV PRN (02:18)
[2022-06-10] MEDS ORDERED: ACETAMINOPHEN 500 MG TAB PO PRN (02:18)
[2022-06-10 03:06] LABS: Barbiturates NEGATIVE (NEGATIVE); Benzodiazepines NEGATIVE (NEGATIVE); Cocaine POSITIVE (NEGATIVE); METHAMPHETAM NEGATIVE (NEGATIVE); Methadone NEGATIVE (NEGATIVE); Opiates NEGATIVE (NEGATIVE); Phencyclidine NEGATIVE (NEGATIVE); THC Cannibis POSITIVE (NEGATIVE)
[2022-06-10 03:41] LABS: Thyroid Stimulating Hormone 0.42 uIU/mL (0.360-3.740); Troponin High Sensitivity 5.7 pg/mL (<58.9)
[2022-06-10 03:48] VITALS: BMI 23.3
[2022-06-10] MEDS: ENOXAPARIN 40 MG/0.4 ML SQ SCH (09:00)
[2022-06-10] MEDS: ASPIRIN EC 81 MG TAB PO SCH (09:00)
[2022-06-10] MEDS ORDERED: ASPIRIN EC 81 MG TAB PO ONE (09:33)
[2022-06-10] MEDS ORDERED: ENOXAPARIN 40 MG/0.4 ML SQ ONE (09:33)
--- NOTE | 2022-06-10 12:40 | CON ---
Date of Consultation: 06/10/[address] Johnson with chest pain and shortness of breath. She is 56 years old. History Of Present Illness: Ms. Dwyer is 56. Came in with midsternal to left lateral chest wall ty pe of pain, worse with breathing and movement. No nausea, vomiting, diaphoresis, PND, orthopnea, ped al edema, palpitation, or syncope. She has already ruled out for an [place]. She has a normal EKG, papo l x-ray, normal CT scan, normal troponin, normal BNP. Echocardiogram is pending. Stress test is pen ding. Past Medical History: Includes hypertension, HIV, and asthma and a family history of heart disease. Allergies: NONE. Medications: At home include Valtrex, prednisone, and albuterol. Physical Examination: By Dr. Johnson was within normal limit. Diagnostic Data: Normal except she had cocaine and marijuana in her urinalysis. Impression And Plan: 1.Atypical chest pain. 2.Hypertension. 3.Human immunodeficiency virus. 4.Asthma. The patient's symptoms are more consistent with pleuritic chest pain, possibly asthma. S he states when she woke up, she was wheezing and short of breath. This is not an acute coronary syndrome. Echocardiogram is pending. Lexiscan is pending. We will continue to follow her. Nevaeh guerra in therapy for now. TIFFANY/ALVARO Voice ID: [id number] Report ID: [id number]
--- NOTE | 2022-06-10 13:38 | EKG ---
Test Date: 2022-06-09 Test Time: 20:07:37 [employer]: RACHID MEASUREMENT RESULTS: Intervals: Rate: 63 LA: 170 QRSD: 118 QT: 422 QTc: 431 [place]: P: 66 LA: 170 QRS: -61 T: 72 INTERPRETIVE STATEMENTS: Normal sinus rhythm Left axis deviation Right bundle branch block Septal infarct, age undetermined Abnormal ECG Compared to ECG 03/25/2021 18:16:34 Left-axis deviation now present Left anterior fascicular block no longer present Bifascicular block no longer present Myocardial infarct finding still present Electronically Signed On 06-10-22 13:36:34 CDT by Charles Hutchison
[2022-06-10] MEDS ORDERED: ATORVASTATIN 20 MG TAB ONE (20:06)
[2022-06-10] MEDS ORDERED: ATORVASTATIN 40 MG TAB PO SCH (21:00)
--- NOTE | 2022-06-11 07:23 | ECHO ---
HEIGHT: 5 ft 5 in WEIGHT: 139 lb 15.897 oz DATE OF STUDY: 06/10/[address]: Ruth Lucero 2-DIMENSIONAL: YES M.MODE: YES DOPPLER: YES COLOR FLOW: YES TDS: NO PORTABLE: YES DEFINITY: NO BUBBLE STUDY: NO DIAGNOSIS: CHEST PAIN CARDIAC HISTORY: CATHERIZATION: SURGERY: PROSTHETIC VALVE: PACEMAKER: MEASUREMENTS (cm) DIASTOLIC (NORMALS) SYSTOLIC (NORMALS) IVSd 1.1 (0.6-1.2) LA Diam 3.1 (1.9-4.0) LVEF 65% LVIDd 4.3 (3.5-5.7) LVIDs 2.8 (2.0-3.5) %FS 35% LVPWd 1.1 (0.6-1.2) Ao Diam 2.7 (2.0-3.7) 2 DIMENSIONAL ASSESSMENT: RIGHT ATRIUM: NOMRAL LEFT ATRIUM: NORMAL RIGHT VENTRICLE: NORMAL LEFT VENTRICLE: NORMAL TRICUSPID VALVE: MILD TRICUSPID REGURGITATION MITRAL VALVE: MILD MITRAL REGURGITATION PULMONIC VALVE: NORMAL AORTIC VALVE: NORMAL PERICARDIAL EFFUSION: NONE AORTIC ROOT: NORMAL LEFT VENTRICULAR WALL MOTION: NORMAL. DOPPLER/COLOR FLOW: SEE BELOW. COMMENTS: NORMAL LEFT VENTRICULAR EJECTION FRACTION 55-60%. NORMAL WALL MOTION. MILD TRICUSPID REGURGITATION. MILD TRICUSPID REGURGITATION. MODERATE MITRAL REGURGITATION. TECHNOLOGIST: KEESHA LONDON
[2022-06-11] MEDS ORDERED: REGADENOSON 0.4 MG/5 ML SYR IV ONE (07:35)
[2022-06-11] MEDS ORDERED: ASPIRIN EC 81 MG TAB PO ONE (08:43)
[2022-06-11] MEDS ORDERED: ENOXAPARIN 40 MG/0.4 ML SQ ONE (08:44)
[2022-06-11] MEDS: ASPIRIN EC 81 MG TAB PO SCH (09:00)
[2022-06-11] MEDS: ENOXAPARIN 40 MG/0.4 ML SQ SCH (09:00)
[2022-06-11 09:31] VITALS: TEMP 98.2
--- NOTE | 2022-06-11 09:39 | RAD REPORT ---
EXAM DESCRIPTION: NM - Rest Stress Cardiac Imaging - 06/11/2022 9:12 am CLINICAL HISTORY: Chest pain COMPARISON: None. TECHNIQUE: The patient was administered 10.8 mCi of Tc 99m Sestamibi prior to resting SPECT imaging of the heart. The patient was then administered 32.3 mCi of Tc 99m Sestamibi following exercise or ph armacologic stress. Multiplanar SPECT images were reviewed. FINDINGS: The end diastolic volume is 100 ml, the end systolic volume is 46 ml, and the ejection fra ction is 54 %. No stress-induced ischemic changes are identifiable. There is a small fixed defect at the anterosepta l apex has more likely be scarring than breast attenuation artifact. There is a mild diaphragmatic at tenuation artifact along the inferior wall. IMPRESSION: No stress-induced ischemic change identifiable. Small focus of scarring anteroseptal wall at the apex. Ventricular volumes and ejection fraction are normal range.
[2022-06-12 18:41] VITALS: O2SAT 100
[2022-06-12 18:43] VITALS: BP 162/96
--- NOTE | 2022-06-14 07:20 | TREADPHA ---
DX: CHEST PAIN Date of Study: 06/11/2022 Ht: 5' 5 " Wt: 140 lb 0 oz Consulting Physician: DARIA MEDICATIONS: TYLENOL, ASPIRIN, LIPITOR, LOVENOX, ZOFRAN HISTORY: 56 YEAR OLD FEMALE WITH COMPLAINTS OF CHEST PAIN. ONE PACK SMOKER WEEKLY. NO DRINKING. OCCASIONAL DRUG USE. PHYSICIAL EXAMINATION: RESTING B.P.: 169/88 RESTING H.R.: 57 RESTING EKG: NORMAL SINUS RHYTHM WITH RIGHT BUNDLE BRANCH BLOCK. PROTOCOL: PHARMACOLOGIC EXERCISE TIME: 3:30 B.P. AT PEAK STRESS: 166/83 IMPRESSION: LEXISCAN INJECTED FOLLOWED BY CARDIOLITE PER PROTOCOL. SEE NUCLEAR MEDICINE REPORT. NO SUPRAVENTRICULAR TACHYCARDIA, VENTRICULAR TACHYCARDIA, PREMATURE ATRIAL COMPLEXES, PREMATURE VENTRICULAR COMPLEXES. PATIENT REPORTED NO CHEST PAIN. NO ELECTROCARDIOGRAM CHANGE OF ISCHEMIA WITH LEXISCAN.
== END 2022-06-11 10:30 | disposition home or self-care (01) ==
LOC: ER 18:19 → ERHOLD 06-10 02:04
PROVIDERS: ADMIT Hospitalist; ATTEND Hospitalist
DX: R07.89 Other chest pain (principal); I10 Essential (primary) hypertension; J45.909 Unspecified asthma, uncomplicated; B20 Human immunodeficiency virus [HIV] disease; I45.10 Unspecified right bundle-branch block; F14.10 Cocaine abuse, uncomplicated; F12.10 Cannabis abuse, uncomplicated; F17.210 Nicotine dependence, cigarettes, uncomplicated; Z79.52 Long term (current) use of systemic steroids; Z79.899 Other long term (current) drug therapy; Z20.822 Contact with and (suspected) exposure to COVID-19; Z82.49 Family history of ischemic heart disease and other diseases of the circulatory system
CPT/HCPCS: 93005; 93017; 93306; 85025; 80048; 36415; 83735; 80061; 84443; 84484 ×2; 83880; 80307; 71275; 74175; 71045; 78452; 99285; 87811; Q9967; J1650 ×2; J2785; A9500; G0378

== ENCOUNTER → 2023-10-04 | Emergency (ER) | payer OTHER ==
[~2023-10-04] MED LIST: ACETAMINOPHEN 500 MG TAB ONE; OSELTAMIVIR 75 MG CAP PO ONE
[2023-10-04 21:53] LABS: Absolute Lymphocytes (CBC) 0.5 K/uL (0.7-4.9); Hematocrit 46.6 % (36.0-45.0); Lymphocytes % 8.5 % (15.3-44.8); MCV 96.9 fL (80-100); MPV 8.6 fL (7.6-11.3); Platelets 203 thou/uL (152-406); RBC Red Blood Cell Count 4.81 M/uL (3.86-4.86)
[2023-10-04 22:09] LABS: Potassium 3.7 mEq/L (3.5-5.1); Troponin High Sensitivity 5.9 pg/mL (<58.9)
--- NOTE | 2023-10-04 22:19 | RAD REPORT ---
EXAM DESCRIPTION: RADChest Single View10/04/2023 10:09 pm CLINICAL HISTORY: DYSPNEA COMPARISON: Chest Single View dated 06/09/2022; Chest Single View dated 03/25/2021; Chest Single View d ated 05/12/2020; Chest Single View dated 12/04/2019 TECHNIQUE: Portable AP view of the chest. FINDINGS: The lungs are clear. No pneumothorax or effusion. The cardiomediastinal contours are unre markable. IMPRESSION: No acute cardiopulmonary process.
--- NOTE | 2023-10-04 22:33 | EDPHYS ---
Physician Documentation [facility] Name: Nisreen Dwyer Age: 58 yrs Sex: Female : 1965 Arrival Date: 10/04/2023 Time: 21:19 Bed 6 Private MD: ED Physician Jayden Lewis HPI: 10/04 22:23 This 58 yrs old Black Female presents to ER via EMS with complaints of cough, dyspnea. kb 22:23 Pt is a 58 year old female who presents for cough, congestion, fever, chills, kb bodyaches, and headache that started yesterday. States she was having shortness of breath today so called 911 to bring her in. EMS reports BP is 200/100. Pt states she doesn't take anything for blood pressure and is not sure what her normal BP is. . Historical: - Allergies: 21:34 NKA; km8 - Home Meds: 21:34 Albuterol Inhl [Active]; Atrovent Inhl [Active]; bikarvy [Active]; km8 - PMHx: 21:34 Asthma; HIV positive; Hypertension; km8 - Immunization history:: Client reports receiving the 2nd dose of the Covid vaccine, Flu vaccine is not up to date. - Social history:: Smoking status: Patient reports the use of cigarette tobacco products, denies chronic smoking, but will smoke occasionally, Patient/guardian denies using alcohol, street drugs. ROS: 22:25 Abdomen/GI: Negative for abdominal pain, nausea, vomiting, diarrhea, and constipation, kb 22:25 Constitutional: Positive for body aches, chills, fatigue, fever, malaise, 22:25 ENT: Positive for rhinorrhea, 22:25 Respiratory: Positive for cough, shortness of breath, 22:25 Neuro: Positive for headache, 22:25 All other systems are negative, Exam: 22:25 Constitutional: This is a well developed, well nourished patient who is awake, alert, kb and in no acute distress. Head/Face: Normocephalic, atraumatic. ENT: Moist Mucous membranes Cardiovascular: Regular rate Respiratory: Respirations even and unlabored. No increased work of breathing. Talking in full sentences Abdomen/GI: Soft, non-tender. No distention Skin: Warm, dry with normal turgor. Normal color. MS/ Extremity: Pulses equal, no cyanosis. Neurovascular intact. Full, normal range of motion. Neuro: Awake and alert, GCS 15, oriented to person, place, time, and situation. Moves all extremities. Normal gait. Vital Signs: 21:31 BP 219 / 95; Pulse 93; Resp 18; Temp 99.3(O); Pulse Ox 98% on R/A; Weight 61.23 kg (R); km8 Height 5 ft. 7 in. (R); Pain 10/10; 22:00 BP 188 / 95; Pulse 89; Resp 16; Pulse Ox 100% on R/A; km8 22:30 BP 174 / 107; Pulse 92; Resp 19; Pulse Ox 98% ; jj7 22:57 BP 179 / 95; Pulse 89; Resp 16; Pulse Ox 98% on R/A; km8 21:31 Body Mass Index 21.14 (61.23 kg, 170.18 cm) km8 21:31 Pain Scale: Adult km8 [place] Coma Score: 21:35 Eye Response: spontaneous(4). Motor Response: obeys commands(6). Verbal Response: km8 oriented(5). Total: 15. MDM: 21:29 Patient medically screened. kb 22:26 Differential Diagnosis: Other flu, covid, uri, pneumonia. Data reviewed: vital signs, kb nurses notes. Historians other than the Patient: EMS: [facility]. Counseling: I had a detailed discussion with the patient and/or guardian regarding the historical points, exam findings, and any diagnostic results supporting the discharge/admit diagnosis, lab results, radiology results, the need for outpatient follow up, a family practitioner, to return to the emergency department if symptoms worsen or persist or if there are any questions or concerns that arise at home. 10/04 21:30 Order name: Basic Metabolic Panel; Complete Time: 22:13 kb 10/04 21:30 Order name: CBC with Diff; Complete Time: 21:57 kb 10/04 21:30 Order name: Troponin HS; Complete Time: 22:13 kb 10/04 21:30 Order name: Flu; Complete Time: 22:13 kb 10/04 21:30 Order name: COVID-19 SARS RT PCR; Complete Time: 22:29 kb 10/04 21:30 Order name: XRAY Chest (1 view); Complete Time: 22:23 kb 10/04 21:30 Order name: EKG; Complete Time: 21:30 kb 10/04 21:30 Order name: Cardiac monitoring; Complete Time: 21:46 kb 10/04 21:30 Order name: EKG - Nurse/Tech; Complete Time: 21:46 kb 10/04 21:30 Order name: IV Saline Lock; Complete Time: 21:46 kb 10/04 21:30 Order name: Labs collected and sent; Complete Time: 21:46 kb 10/04 21:30 Order name: O2 Per Protocol; Complete Time: :46 kb 10/04 21:30 Order name: O2 Sat Monitoring; Complete Time: 21:46 kb 10/04 22:27 Order name: Vital Signs; Complete Time: 22:39 kb Administered Medications: 21:46 Drug: Acetaminophen PO 1000 mg PO once Route: PO; km8 22:39 Follow up: Response: No adverse reaction km8 22:39 Drug: Oseltamivir PO 75 mg PO once Route: PO; km8 22:58 Follow up: Response: Medication administered at discharge. km8 Disposition Summary: 10/04/23 22:32 Discharge Ordered Notes: Location: Home kb Condition: Stable kb Diagnosis - Influenza due to identified novel influenza A virus kb Followup: kb - With: Emergency Department - When: As needed - Reason: Worsening of condition Followup: kb - With: Private Physician - When: 2 - 3 days - Reason: Recheck today's complaints, Continuance of care, Re-evaluation by your physician Discharge Instructions: - Discharge Summary Sheet kb - Influenza, Adult, [id number] kb Forms: - Medication Reconciliation Form kb - Thank You Letter kb - Antibiotic Education kb - Prescription Opioid Use kb - Patient Portal Instructions kb - Leadership Thank You Letter kb Prescriptions: - Tamiflu 75 mg Oral capsule - take 1 tablet ORAL route every 12 hours for 5 days; 9 tablet; Refills: 0, kb Product Selection Permitted Signatures: Dispatcher [employer] Rafaela Ramirez FNP-C FNP-Ckb Marx, Katie, RN RN km8
--- NOTE | 2023-10-04 22:33 | ER ---
Nurse's Notes [facility] Name: Nisreen Dwyer Age: 58 yrs Sex: Female : 1965 Arrival Date: 10/04/2023 Time: 21:19 Bed 6 Private MD: Diagnosis: Influenza due to identified novel influenza A virus Presentation: 10/04 21:31 Chief complaint: EMS states: SOB starting yesterday with chills; hx of asthma and HIV; km8 pt reports cough as well. Coronavirus screen: Client denies travel out of the [place] in the last 14 days. Ebola Screen: No symptoms or risks identified at this time. Initial Sepsis Screen: Does the patient meet any 2 criteria? HR > 90 bpm. No. Patient's initial sepsis screen is negative. Does the patient have a suspected source of infection? No. Patient's initial sepsis screen is negative. Risk Assessment: Do you want to hurt yourself or someone else? Patient reports no desire to harm self or others. Onset of symptoms was October 03, 2023. 21:31 Method Of Arrival: EMS: [facility] km8 21:31 Acuity: VIVIANE 3 km8 Triage Assessment: 21:34 General: Appears in no apparent distress. comfortable, Behavior is calm, cooperative, km8 appropriate for age. Pain: Complains of pain in head Pain currently is 10 out of 10 on a pain scale. Quality of pain is described as aching. EENT: No signs and/or symptoms were reported regarding the EENT system. Neuro: Level of Consciousness is awake, alert, obeys commands, Oriented to person, place, time, situation, Reports headache. Cardiovascular: Denies chest pain, Capillary refill < 3 seconds Patient's skin is warm and dry. Respiratory: Reports shortness of breath Airway is patent Respiratory effort is even, unlabored, Respiratory pattern is regular, symmetrical. GI: No signs and/or symptoms were reported involving the gastrointestinal system. : No signs and/or symptoms were reported regarding the genitourinary system. Derm: No signs and/or symptoms reported regarding the dermatologic system. Skin is intact, is healthy with good turgor, Skin is dry, Skin is pink, warm \T\ dry. normal, Skin temperature is warm. Musculoskeletal: No signs and/or symptoms reported regarding the musculoskeletal system. Circulation, motion, and sensation intact. Range of motion: intact in all extremities. Historical: - Allergies: 21:34 NKA; km8 - Home Meds: 21:34 Albuterol Inhl [Active]; Atrovent Inhl [Active]; bikarvy [Active]; km8 - PMHx: 21:34 Asthma; HIV positive; Hypertension; km8 - Immunization history:: Client reports receiving the 2nd dose of the Covid vaccine, Flu vaccine is not up to date. - Social history:: Smoking status: Patient reports the use of cigarette tobacco products, denies chronic smoking, but will smoke occasionally, Patient/guardian denies using alcohol, street drugs. Screenin:35 [facility] ED Fall Risk Assessment (Adult) History of falling in the last 3 months, 8 including since admission No falls in past 3 months (0 pts) Confusion or Disorientation No (0 pts) Intoxicated or Sedated No (0 pts) Impaired Gait No (0 pts) Mobility Assist Device Used No (0 pt) Altered Elimination No (0 pt) Score/Fall Risk Level 0 - 2 = Low Risk Oriented to surroundings, Maintained a safe environment, Educated pt \T\ family on fall prevention, incl call for assistance when getting out of bed, Assessed \T\ reinforced patient's understanding of fall precautions. Abuse screen: Denies threats or abuse. Denies injuries from another. Nutritional screening: No deficits noted. Tuberculosis screening: No symptoms or risk factors identified. Assessment: 21:35 General: see triage notes/assessment. [facility] Vital Signs: 21:31 BP 219 / 95; Pulse 93; Resp 18; Temp 99.3(O); Pulse Ox 98% on R/A; Weight 61.23 kg (R); km8 Height 5 ft. 7 in. (R); Pain 10/10; 22:00 BP 188 / 95; Pulse 89; Resp 16; Pulse Ox 100% on R/A; km8 22:30 BP 174 / 107; Pulse 92; Resp 19; Pulse Ox 98% ; jj7 22:57 BP 179 / 95; Pulse 89; Resp 16; Pulse Ox 98% on R/A; km8 21:31 Body Mass Index 21.14 (61.23 kg, 170.18 cm) [facility] 21:31 Pain Scale: Adult [facility] [place] Coma Score: 21:35 Eye Response: spontaneous(4). Motor Response: obeys commands(6). Verbal Response: km8 oriented(5). Total: 15. ED Course: 21:29 Patient arrived in ED. ec2 21:29 Rafaela Ugarte FNP-C is [facility]. kb 21:29 Jayden Lewis MD is Attending Physician. kb 21:33 Triage completed. km8 21:34 Arm band placed on right wrist. km8 21:35 Patient has correct armband on for positive identification. Bed in low position. Call km8 light in reach. Side rails up X2. Pulse ox on. NIBP on. Warm blanket given. 21:35 No provider procedures requiring assistance completed. Patient maintains SpO2 km8 saturation greater than 95% on room air. 21:46 COVID-19 SARS RT PCR Sent. km8 21:46 Flu Sent. km8 21:46 Basic Metabolic Panel Sent. km8 21:46 CBC with Diff Sent. km8 21:46 Troponin HS Sent. km8 21:46 Maintain EMS IV. Dressing intact. Good blood return noted. Site clean \T\ dry. Gauge \T\ km 8 site: 20 gauge Left forearm. 22:11 XRAY Chest (1 view) In Process Unspecified. EDMS 22:11 Marlin Martin, RN is Primary Nurse. km8 22:58 Provided Education on: d/c teaching. km8 22:58 IV discontinued, intact, bleeding controlled, No redness/swelling at site. Pressure km8 dressing applied. Administered Medications: 21:46 Drug: Acetaminophen PO 1000 mg PO once Route: PO; km8 22:39 Follow up: Response: No adverse reaction km8 22:39 Drug: Oseltamivir PO 75 mg PO once Route: PO; km8 22:58 Follow up: Response: Medication administered at discharge. km8 Medication: 21:35 VIS not applicable for this client. km8 Outcome: 22:32 Discharge ordered by . kb 22:58 Discharged to home ambulatory, with family, km8 22:58 Condition: good 22:58 Discharge instructions given to patient, family, Instructed on discharge instructions, follow up and referral plans. medication usage, Demonstrated understanding of instructions, follow-up care, medications, Prescriptions given X 1, 22:59 Patient left the ED. km8 Signatures: Dispatcher [employer] EDMS Rafaela Ugarte FNP-C FNP-Darryl Hdz, RN RN jj7 Jayden Lewis MD MD ec2 Marlin Martin RN RN km8
[2023-10-05 01:57] VITALS: TEMP 99.3; O2SAT 98
[2023-10-05 02:12] VITALS: BP 179/95
== END ==
LOC: ER 21:19
DX: J10.1 Influenza due to other identified influenza virus with other respiratory manifestations (principal); I10 Essential (primary) hypertension; F17.210 Nicotine dependence, cigarettes, uncomplicated; Z21 Asymptomatic human immunodeficiency virus [HIV] infection status; Z11.52 Encounter for screening for COVID-19
CPT/HCPCS: 36415; 71045; 80048; 84484; 85025; 87635; 87804; 93005